=== PATIENT | female | born 2000 | race Caucasian/White ===

== ENCOUNTER 2024-06-25 08:39 | Outpatient (OUT) | payer BC, OTHER, SELFPAY ==
[2024-06-25 09:33] LABS: Creatinine Urine Random 148.54 mg/dL (20.00-300.00); Microalbumin Urine Random <1.3 mg/dL (<=30.0)
[2024-06-25 09:49] LABS: Alanine Aminotransferase 77 U/L (14-59); Albumin Globulin Ratio 1.4; Albumin Level 3.7 g/dL (3.4-5.0); Alkaline Phosphatase 99 U/L (46-116); Anion Gap 10.6; Aspartate Amino Transferase 33 U/L (15-37); BUN Creatinine Ratio 19.3; Bilirubin Total 0.5 mg/dL (0.2-1.0); Calcium 8.7 mg/dL (8.5-10.1); Carbon Dioxide 28.2 mmol/L (21.0-32.0); Chloride 104 mmol/L (98-107); Chol HDL Ratio 2.7; Cholesterol 203 mg/dL (<=200); Estimated GFR (African America >60 (>=60); Estimated GFR (Non-African Ame >60 (>=60); Globulin 2.6 g/dL; Glucose 175 mg/dL (74-106); HDL Cholesterol 76 mg/dL (40-60); Potassium 3.8 mmol/L (3.5-5.1); Sodium 139 mmol/L (136-145); Thyroid Stimulating Hormone 1.614 uIU/mL (0.358-3.740); Total Protein 6.3 g/dL (6.4-8.2); Triglycerides 44 mg/dL (<=150); VLDL CHOLESTEROL 8.8 mg/dL
[2024-06-27 12:07] LABS: C-Peptide, Serum <0.1 ng/mL (1.1-4.4)
== END 2024-06-25 08:40 | disposition home or self-care (01) ==
LOC: LAB 08:39
DX: E10.9 Type 1 diabetes mellitus without complications (principal)
CPT/HCPCS: 36415; 80053; 80061; 82043; 82570; 84443; 84681

== ENCOUNTER 2025-02-11 09:12 | Outpatient (OUT) | payer BC, OTHER, SELFPAY ==
--- NOTE | 2025-02-11 09:18 | XR_ITS ---
[facility] [place] [id number] Patient Name: CLINTON RALPH MRN: [id number] date: 2000 Sex: F Assigned Patient Location: [facility] Current Patient Location: [facility] Accession/Order Number: [id number] Exam Date: 02/11/2025 09:51 Report Date: 02/11/2025 09:52 At the request of: TRINO HOOVER Procedure: XR chest 2V PA AND LATERAL CHEST: CLINICAL HISTORY: Cough and chest congestion. Recent diagnosis of influenza A. COMPARISON: None There is no focal parenchymal consolidation, effusion or pneumothorax. The cardiac, hilar and mediastinal silhouettes are within normal limits. There is no vascular congestion. The visualized bony thorax is intact. There is subtle levoscoliotic curvature. XR/XR chest 2V IMPRESSION: NO ACUTE CARDIOPULMONARY ABNORMALITY. Impression dictated by: Corinna Breen M.D.02/11/2025 9:52 AM Dictation Location: [place] [id number] Electronically authenticated by: [id number] Y Date: 02/11/2025 09:52
--- OUTSIDE RECORDS SUMMARY | 2025-02-11 09:29 | XMS_ITS | CCD ---
Author Organization [facility] Care Team Providers Care Vehicle Inspector Name Role Phone Franki Dunlap Primary Care Provider SURI MC Attending Unavailable MY SAENZ Primary Care Unavailable Erma REN, Su Olson Attending Ivory vailable My Saenz DO Primary Care Un available Unavailable Primary Care Provider UnavailODELL Montana Attending Unavailable My Saenz DO Unavailable Lillie Irvin NP Primary Care Provider My Saenz DO Unavailable LILLIE IRVIN Primary Care Physician [phone] Herlinda Jacobson Unavailable MY SAENZ Attending Unavailable MY SAENZ Attending Unavailable ADRIÁN WAKEFIELD Attending Unavailable LILLIE IRVIN Referring Unavailab ADRIÁN Arnold Attending Unavailable MY SAENZ Attending Unavailable MADNA GUERRERO Attending Unavailable Melody Saxena Attending Unavailable Melody Saxena Admitting Unavailable Melody Saxena Attending Unavailable Watson Escobar Attending Unavailable Medications Current Medications Medication Drug Class(es) Dates Sig (Normalized) Sig (Original) ciclopirox (3 sources) Start: 07-21-2024 Ciclopirox 8 % solution Active 1 APPLIC TOPICAL Daily at bedtime 6.6 July 21, 2024 12:00am Start: 07-21-2024 Ciclopirox 8 % solution Active 1 APPLIC TOPICAL Daily at bedtime 6.6 July 20, 2024 11:00pm Start: 07-21-2024 Ciclopirox Act john 1 APPLIC TOPICAL Daily at bedtime 6.6 July 21, 2024 12:00am Continuous Blood Gluc Sensor (Dexcom G7 Sensor) [facility] (12 sources) Start: 01-19-2024 Continuous Blood Gluc Sensor (Dexcom G7 Sensor) [facility] Indications: Type 1 diabetes mellitus without complication (CMS/HCC) Inject 1 Device under the skin See administration instructions Change every 10 days 9 each 3 01/19/2024 Active ethinyl estradiol 0.02 mg / norethindrone acetate 1 mg oral tablet (1 source) Estrogen Start: 05-13-2019 take 1 tablet by mouth once daily 12/20 1-20 MG-MCG per tablet TAKE 1 TABLET BY MOUTH EVERY DAY 11 05/13/2019 Active glucagon 3 mg nasal powder (17 sources) Antihypoglycemic Agent Start: 06-17-2024 glucagon 3 mg/actuation nasal spray (BAQSIMI) Use 1 Warren in the nose as needed for low blood sugar. May repeat after 15 minutes using a new device if there is no response. 2 Each 1 06/17/2024 Active Start: 05-05-2023 take 3 mg nasal route once glu cagon (Baqsimi Two Pack) 3 MG/DOSE nasal powder Indications: Type 1 diabetes mellitus without complication (CMS/HCC) Administer 3 mg into affected nostril(s) 1 (one) time if needed for low blood sugar. 1 each 1 05/05/2023 Active Start: 04-01-2013 glucagon (GLUC AGON EMERGENCY) 1 MG injection Indications: Diabetes mellitus type 1 (HCC) , Microalbuminuria As directed for extreme hypoglycemia 2 kit 2 04/01/2013 Active Glucagon (Baqsimi) 3 mg/actuation spray,non-aerosol (4 sources) Start: 06-28-2024 Glucagon (Baqs imi) 3 mg/actuation spray,non-aerosol Active 3 MG INTRANASAL Once as needed for hypoglycemia June 28, 2024 12:00am Start: 06-28-2024 Glucagon (Baqs imi) 3 mg/actuation spray,non-aerosol Active 3 MG INTRANASAL Once as needed for hypoglycemia June 27, 2024 11:00pm Start: 06-28-2024 Glucagon (Baqs imi) 3 mg/actuation spray,non-aerosol Active 3 MG INTRANASAL Once June 28, 2024 12:00am Mucinex (3 sources) Start: 10-29-2024 take 1 mg by mouth every twelve hours Mucinex mg, Oral, q12hr, Refills(s) 0 Start Date: 10/29/24 Status: Ordered ibuprofen 600 mg oral tablet (1 source) Nonsteroidal Anti-inflammatory Drug Start: 05-14-2014 take 1 tablet by mouth every six hours as needed for pain ibuprofen (ADVIL;MOTRIN) 600 MG tablet Take 1 tablet by mouth every 6 hours as needed for Pain for 40 doses. 40 tablet 0 05/14/2014 Active 3 ml insulin glargine 100 unt/ml pen injector (20 sources) Insulin Analog Start: 07-06-2024 insulin glargi ne (Lantus SoloStar) 100 UNIT/ML pen Indications: Type 1 diabetes mellitus without complication (CMS/HCC) Inject 34 Units under the skin at bedtime 15 mL 1 07/06/2024 Active Start: 06-28-2024 Insulin Glargi ne (Lantus Solostar U-100 Insulin) 100 unit/mL (3 mL) insulin pen Active 34 UNIT SUBCUT Daily at bedtime June 28, 2024 12:00am Start: 06-17-2024 insulin glargi ne (BASAGLAR KWIKPEN U-100 INSULIN) 100 unit/mL (3 mL) Inject 30 Units subcutaneously. Use in case of pump malfunctioning 0 06/17/2024 Active Insulin Infusion Pump (T:sli m Insulin Delivery System) device (14 sources) Start: 11-22-2024 Insulin Infusi on Pump (T:slim Insulin Delivery System) device Indications: Type 1 diabetes mellitus without complication (CMS/HCC) Basal: 12A 1.45, 1P 1.35, 5P 1.6, ICR: 12A 5, 11A 6, ISF: 75, target: 110 1 each 11/22/2024 Active Start: 07-06-2024 End: 11-22-2024 Insulin Infusion Pump (T:sli m Insulin Delivery System) device Indications: Type 1 diabetes mellitus without complication (CMS/HCC) Basal: 12A 1.35, 8A 1.45, 1P 1.3, 5P 1.6, ICR: 12A 6, ISF: 75, target: 110 1 each 07/06/2024 11/22/2024 Discontinued (Dose adjustment) Start: 07-06-2024 Insulin Infusi on Pump (T:slim Insulin Delivery System) device Indications: Type 1 diabetes mellitus without complication (CMS/HCC) Basal: 12A 1.35, 8A 1.45, 1P 1.3, 5P 1.6, ICR: 12A 6, ISF: 75, target: 110 1 each 07/06/2024 Active insulin aspart, human 100 unt/ml injectable solution (20 sources) Insulin Analog Start: 10-29-2024 NovoLOG 100 un its/mL injectable solution Refills(s) 0 Start Date: 10/29/24 Status: Ordered Start: 06-28-2024 Insulin Aspart U-100 (Novolog U-100 Insulin Aspart) 100 unit/mL solution Active 0 .ROUTE .COMPLEX June 28, 2024 12:00am DIRECTED; Start: 05-24-2024 NOVOLOG U-100 INSULIN ASPART 100 unit/mL PER PUMP (MAX DAILY UNITS OF 80) 0 05/24/2024 Active Start: 02-26-2024 insulin aspart (NovoLOG) 100 UNIT/ML injection Indications: Type 1 diabetes mellitus without complication (CMS/HCC) Per pump (max daily 80 units) 80 mL 3 02/26/2024 Active Start: 06-15-2012 insulin aspart (NOVOLOG) 100 UNIT/ML injection Indications: Diabetes mellitus type 1 (HCC) For use in insulin pump, up to 60 units/day. 90 day supply 12 vial 3 06/15/2012 Active levocetirizine dihydrochloride 5 mg oral tablet (1 source) Histamine-1 Receptor Antagonist Start: 09-17-2019 take 1 tablet by mouth once daily levocetirizine (XYZAL) 5 MG tablet Indications: Seasonal allergic rhinitis due to pollen Take 1 tablet by mouth nightly 30 tablet 1 09/17/2019 Active lisinopril 10 mg oral tablet (1 source) Angiotensin Converting Enzyme Inhibitor Start: 04-13-2014 take 1 tablet by mouth once daily lisinopril (PRINIVIL;ZESTRIL) 10 MG tablet Indications: Microalbuminuria One tablet daily by mouth. 3 month supply 90 tablet 3 04/13/2014 Active montelukast 10 mg oral tablet (1 source) Leukotriene Receptor Antagonist Start: 09-17-2019 take 1 tablet by mouth once daily montelukast (SINGULAIR) 10 MG tablet Indications: Seasonal allergic rhinitis due to pollen Take 1 tablet by mouth daily 30 tablet 1 09/17/2019 Active ondansetron 8 mg disintegrating oral tablet (1 source) Serotonin-3 Receptor Antagonist Start: 12-16-2012 take 1 tablet by mouth every eight hours as needed for nausea ondansetron (ZOFRAN ODT) 8 MG disintegrating tablet Indications: Microalbuminuria , Diabetes mellitus type 1 (HCC) Take 1 tablet by mouth every 8 hours as needed for Nausea (nausea/vomiting). 10 tablet 2 12/16/2012 Active oseltamivir 75 mg oral capsule (1 source) Neuraminidase Inhibitor Start: 02-08-2025 take 1 capsule by mouth twice daily Oseltamivir (Tamiflu) 75 mg capsule Active 75 MG PO Twice daily 10 February 08, 2025 12:00am terbinafine 250 mg oral tablet (2 sources) Allylamine Antifungal Start: 08-25-2024 End: 10-06-2024 take 1 tablet by mouth once daily terbinafine (LamISIL) 250 MG tablet Indications: Onychomycosis Take 1 tablet (250 mg) by mouth Daily 42 tablet 08/25/2024 10/06/2024 Active Zofran ODT 4 mg Tab-Dis (2 sources) Start: 01-07-2025 take 1 tablet by mouth every eight hours as needed for nausea Zofran ODT 4 mg Tab-Dis 4 mg = 1 tab(s), Oral, q8hr, PRN Nausea/Vomiting, # 20 tab(s), Refills(s) 0, Pharmacy: [facility]/pharmacy #[id number], 163, cm, 01/07/25 15:58:00 EST, Height/Length Dosing, 84.2, kg, 01/07/25 15:58:00 EST, Weight Dosing Start Date: 01/07/25 Status: Ordered Completed/Discontinued Medications Medication Drug Class(es) Dates Sig (Normalized) Sig (Original) amoxicillin 875 mg / clavulanate 125 mg oral tablet (3 sources) Penicillin-class Antibacterial Start: 01-24-2025 End: 02-08-2025 take 1 tablet by mouth twice daily Amoxicillin-Pot Clavulanate 875-125 mg tablet Discontinued 1 TAB PO Twice daily 20 January 24, 2025 1:00am February 08, 2025 2:55pm Start: 10-29-2024 End: 11-08-2024 take 1 tablet by mouth every twelve hours Augmentin 875 mg oral tablet = 1 tab(s), Oral, q12hr, X 10 day(s), # 20 tab(s), Refills(s) 0, Pharmacy: [facility]/pharmacy #[id number], 163, cm, 10/29/24 11:13:00 EST, Height/Length Dosing, 81.9, kg, 10/29/24 11:13:00 EST, Weight Dosing Start Date: 10/29/24 Stop Date: 11/08/24 Status: Ordered busPIRone hydrochloride 5 mg oral tablet (16 sources) Start: 06-28-2024 End: 01-24-2025 take 1 tablet by mouth once Buspirone 5 mg tablet Discontinued 5 MG PO Once 90 90 July 21, 2024 2:58pm January 24, 2025 4:00pm Problems Active Problems Problem Classification Problem Date Documented Da te Episodic/Chronic Abdominal pain (1 source) Left lower quadrant pain; Translations: [Left lower quadrant pain] Onset: 01-25-2023 Episodic Anxiety disorders (8 sources) Anxiety; Translations: [Anxiety disorder, unspecified] 06-28-2024 Chronic Contraceptive and procreative management (4 sources) Patient encounter status; Translations: [Encounter for other general counseling and advice on contraception] 11-15-2024 Episodic Diabetes mellitus with complications (4 sources) Hypoglycemia due to diabetes mellitus; Translations: [Type 1 diabetes mellitus with hypoglycemia without coma] Onset: 06-17-2024 06-17-2024 Chronic Diabetes mellitus without complication (20 sources) Type 1 diabetes mellitus; Translations: [Type 1 diabetes mellitus without complication] Onset: 04-11-2023 08-29-2011 Chronic Diabetes mellitus without complication (5 sources) Insulin pump present; Translations: [Presence of insulin pump (external) (internal)] Onset: 06-17-2024 06-17-2024 Episodic Disorders of lipid metabolism (1 source) Pure hypercholesterolemi a; Translations: [Pure hypercholesterolemi a, unspecified] 07-04-2024 Chronic Mycoses (8 sources) Onychomycosis due to dermatophyte ; Translations: [Tinea unguium] 07-21-2024 Episodic Nausea and vomiting (3 sources) Nausea; Translations: [Nausea] Onset: 01-07-2025 Episodic Other female genital disorders (2 sources) History of gynecological disorder; Translations: [Personal history of other diseases of the female genital tract] 12-02-2024 Episodic Other gastrointestinal disorders (1 source) Constipation, unspecified; Translations: [Constipation, unspecified] Onset: 01-25-2023 Episodic Other screening for suspected conditions (not mental disorders or infectious disease) (2 sources) Cancer cervix screening status; Translations: [Encounter for screening for malignant neoplasm of cervix] 11-15-2024 Episodic Other upper respiratory infections (4 sources) Chronic sinusitis; Translations: [Chronic sinusitis, unspecified] Onset: 10-29-2024 Chronic Other upper respiratory infections (3 sources) Acute pharyngitis; Translations: [Acute pharyngitis, unspecified] Onset: 01-07-2025 Episodic Past or Other Problems Problem Classification Problem Date Documented Da te Episodic/Chronic Genitourinary symptoms and ill-defined conditions (1 source) Microalbuminuria; Translations: [Microalbuminuria] Onset: 12-05-2011 12-05-2011 Episodic Other connective tissue disease (12 sources) Tendonitis of left wrist; Translations: [Other enthesopathies, not elsewhere classified] Onset: 07-06-2024 07-06-2024 Episodic Other connective tissue disease (12 sources) Enthesopathy; Translations: [Enthesopathy, unspecified] Onset: 07-06-2024 07-06-2024 Episodic Results Test Name Value Interpretation Reference Range Facility Influenza virus B Ag [Presen ce] in Upper respiratory specimen by Rapid immunoassayon 01-24-2025 FLUBV Ag IA.rapid Ql (Nph) Influenza virus B Ag [Presence] in Upper respiratory specimen by Rapid immunoassay [facility] No Panel Informationon 01-24 Influenza Type A (Rapid) Negative [facility] POC SARS CoV-2 Antigen Negative [facility] Ambulatory Visit Summaryon 0 01-07-2025 Ambulatory Visit Summary Ambulatory Visit Summary CLINTON RALPH :2000 Visit Date:01/07/2025 Ambulatory Visit Instructions Your Diagnosis Nausea Pharyngitis Your Care Team Attending Physician - Melody John Primary Care Physician - ROHRBACHER COCONUT BOILER, LILLIE A This Is Your Medications List guaifenesin (Mucinex) insulin aspart (NovoLOG 100 units/mL injectable solution) ondansetron (Zofran ODT 4 mg Tab-Dis) Discharge Vitals Temperature (Oral) 36.7 ???C Heart Rate (Peripheral) 94 Blood Pressure 114/76 Height 163 cm Height 64 in Weight 84.2 kg Weight 185.629 lb BMI 31.69 What to do next You Need to Complete the Following Strep Screen Culture, Throat, Routine collect, 01/07/25, Order for future visit, Nurse collect, Nausea Pharyngitis, Print Label By Order Location Medications What How Much When Why Instructions New ondansetron (Zofran ODT 4 mg Tab-Dis) 1 Tablets By Mouth Every 8 hours as needed for Nausea/Vomiting Nausea Pickup at [facility]/pharmacy #[id number] Unchanged guaifenesin (Mucinex) By Mouth Every 12 hours Unchanged insulin aspart (NovoLOG 100 units/ mL injectable solution) Pharmacy Information [facility]/pharmacy #[id number]: [address] [place], [place] [id number] [phone] Allergies No Known Allergies Problems Ongoing - Any problem that you are currently receiving treatment for. Nausea Pharyngitis Patient Survey You may receive a survey via text or e-mail asking about your office visit. Please share your experience with us by completing your survey. We appreciate your feedback and thank you for choosing us for your care. Della [facility] Family Medicine Office/Clini c Noteon 01-07-2025 Family Medicine Office/Clinic Note Family Medicine Office/Clinic Note Chief Complaint congstion and sore throat HPI Staff Patient presents today for sore throat and congestion. 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 head pressure and throat pain. mild abd pain with nausea. LMP a week ago. Denies chance of no cough. similar to 2 months ago . Type 1 DM with insulin -sugar was 300 today. She had some generalized complaints and wanted to quickly get this checked out finished full day of school/work. Review of Systems PHQ Score Initial Depression Screen Score: 0 SCORE Physical Exam Vitals & Measurements T: 36.7 ???C(Oral) HR: 94(Peripheral) BP: 114/76 SpO2: 96% HT: 64 in HT: 163 cm WT: 84.2 kg WT: 185.629 lb BMI: 31.69 General: alert, no acute distress, well appearing, _pleasant, young female pleasant room 5 Skin: warm, dry, intact Head: no trauma, normocephalic Neck: Trachea midline, no adenopathy, no tenderness Eye: normal conjunctiva, sclera clear, _PERRLA ENMT: TM's clear, mild bulging noted to the TMs, no injection or purulence or erythema to the TMs , oral mucosa moist, no pharyngeal erythema or exudate, normal dentition, uvula is midline, tonsils are surgically absent Cardiovascular: regular rate and rhythm, normal peripheral perfusion, no edema Respiratory: Lungs CTA, respirations non labored Chest wall: no deformity, non tender Gastrointestinal: soft, non distended, no tenderness, no guarding. No rigidity, negative CVA tenderness Back: No tenderness, Normal ROM, Normal alignment. Extremities: no deformity, no trauma Neurological: oriented x 4, LOC appropriate for age, CN II-XII intact, motor strength equal & normal bilaterally, sensation equal & normal bilaterally, speech normal Psychiatric: cooperative? , affect appropriate for age? , normal? judgement, normal? psychiatric thoughts. Assessment/Plan 1. Nausea (R11.0: Nausea) As needed Zofran sent to the pharmacy, likely early viral infection. Patient will monitor symptoms closely. I told her she can call me if she takes an at home influenza test and she may benefit from Tamiflu. Office testing covid and flu negative . Note for work was provided. Patient instructed this is likely viral. She will follow-up with her PCP about of [facility] Ordered: ondansetron, 4 mg = 1 tab(s), Oral, q8hr, PRN Nausea/Vomiting, # 20 tab(s), Refills(s) 0, Pharmacy: [facility]/pharmacy #[id number], 163, cm, 01/07/25 15:58:00 EST, Height/Length Dosing, 84.2, kg, 01/07/25 15:58:00 EST, Weight Dosing Strep Screen Culture 2. Pharyngitis (J02.9: Acute pharyngitis, unspecified) warm salt water gargles and OTC meds needed for discomfort. Will send for strep culture Encourage close monitoring of blood sugars due to diabetes Ordered: Strep Screen Culture Total time spent preparing the chart, conducting of the encounter with the patient and family and time spent documenting, reviewing, and ordering tests was 30 minutes. Portions of this record may have been created with voice recognition artificial intelligence software, specifically [employer], Respi and or ERPLY. Substitutions may have occurred due to the inherent limitations of voice recognition and artificial intelligence software. Follow-up With When Contact Information YOUR PCP Additional Instructions: Patient Education Pharyngitis Nausea and Vomiting, Adult Problem List/Past Medical History Ongoing Nausea Pharyngitis Historical No qualifying data Medications Mucinex, Oral, q12hr NovoLOG 100 units/mL injectable solution Zofran ODT 4 mg Tab-Dis, 4 mg= 1 tab(s), Oral, q8hr, PRN Allergies No Known Allergies Social History Tobacco Never (less than 100 in lifetime) Tobacco Use:. Never Smokeless Tobacco Use:. Household tobacco concerns: No., 01/07/2025 Normal [facility] Comment on above: Result Comment: Elec tronically Signed By: Hemanth BRYAN, Melody Cartagena\.br\Date and Time Signed: 01/07/25 16:45 EST Provider Letteron 01-07-2025 Provider Letter Provider Letter [address] [place] [address]. [place] [address] January 07, 2025 CLINTON RALPH [address] [place] [id number] : 2000 To Whom It May Concern, Please excuse above patient from work. Date of Illness: From: _ 01/07/25 To: _01/10/25 May Return to Work On: 01/10/25 -if fever free for 24 hours Restrictions: _ Comments: _ Sincerely, Melody Saxena [facility] [address] [place] [address], [place] [address] Normal [facility] CORTISOL, TOTALon 12-14-2024 CORTISOL, TOTAL 21.8 mcg/dL Normal [facility] Comment on above: Result Comment: Refe rence Range: For 8 a.m.(7-9 a.m.) Specimen: 4.0-22.0 Reference Range: For 4 p.m.(3-5 p.m.) Specimen: 3.0-17.0 * Please interpret above results accordingly * Performed By: #### 7 46, 899, 615, 367, 866, 745, [id number] #### [facility] [address] [facility], [address] [place] [address] Coal Loader: Germain Hendrix MD #### [id number] #### [facility] [address] [facility] [place] [address] Coal Loader: Quentin Gama M.D.,PhD #### [id number] #### [facility] [address] [place] [address] Coal Loader: Antonina Junior MD,PhD,JAGDISH Cortisolon 12-14-2024 Cortisol [Mass/Vol] 21.8 ug/dL mcg/dL [facility] Comment on above: Reference Range: For 8 a.m.(7-9 a.m.) Specimen: 4.0-22.0 Reference Range: For 4 p.m.(3-5 p.m.) Specimen: 3.0-17.0 * Please interpret above results accordingly * ESTRONEon 12-14-2024 ESTRONE 55 pg/mL Normal [facility] Comment on above: Order Comment: FASTI NG:YES FASTING: YES Result Comment: Adult Female Reference Ranges for Estrone: Follicular Phase: 10-138 pg/mL Luteal Phase: 16-173 pg/mL Postmenopausal Phase: < or = 65 pg/mL Pediatric Female Reference Ranges for Estrone: Pre-pubertal (1-9 years): < or = 34 pg/mL 10-11 years: < or = 72 pg/mL 12-14 years: < or = 75 pg/mL 15-17 years: < or = 188 pg/mL This test was developed and its analytical performance characteristics have been determined by [facility]. It has not been cleared or approved by FDA. This assay has been validated pursuant to the CLIA regulations and is used for clinical purposes. Performed By: #### 7 46, 899, 615, 367, 866, 745, [id number] #### [facility] [address] [facility], [address] [place] [address] Coal Loader: Germain Hendrix MD #### [id number] #### [facility] [address] [facility] [place], [place] Coal Loader: Quentin Gama M.D.,PhD #### [id number] #### [facility], [address] [place] [phone] Coal Loader: Antonina Junior MD,PhD,JAGDISH Estroneon 12-14-2024 E1 [Mass/Vol] 55 pg/mL [facility] Comment on above: Adult Female Reference Ranges for Estrone: Follicular Phase: 10-138 pg/mL Luteal Phase: 16-173 pg/mL Postmenopausal Phase: < or = 65 pg/mL Pediatric Female Reference Ranges for Estrone: Pre-pubertal (1-9 years): < or = 34 pg/mL 10-11 years: < or = 72 pg/mL 12-14 years: < or = 75 pg/mL 15-17 years: < or = 188 pg/mL This test was developed and its analytical performance characteristics have been determined by [facility]. It has not been cleared or approved by FDA. This assay has been validated pursuant to the CLIA regulations and is used for clinical purposes. Performing Organization Information Site ID: [id number] Name: [facility], Address: [address] [place] [id number] Director: Antonina Junior MD,PhD,JAGDISH [facility] LHon 12-14-2024 LH 4.1 mIU/mL Normal [facility] Comment on above: Result Comment: Refe rence Range Follicular Phase 1.9-12.5 Mid-Cycle Peak 8.7-76.3 Luteal Phase 0.5-16.9 Postmenopausal 10.0-54.7 Performed By: #### 7 46, 899, 615, 367, 866, 745, [id number] #### [facility] [address], [address] [place], [place] [phone] Coal Loader: Germain Hendrix MD #### [id number] #### [facility]/[place] [id number] [facility] [address] [place], [place] Coal Loader: Quentin Gama M.D.,PhD #### [id number] #### [facility], [address] [place] [address] Coal Loader: Antonina Junior MD,PhD,JAGDISH Luteinizing hormoneon 2024 Lutropin Qn 4.1 m[IU]/mL mIU/mL [facility] Comment on above: Reference Range Follicular Phase 1.9-12.5 Mid-Cycle Peak 8.7-76.3 Luteal Phase 0.5-16.9 Postmenopausal 10.0-54.7 No Panel Informationon 12-14 FASTING:YES FASTING: YES [facility] Organization Information Site ID: [id number] Name: [facility] Address: [address] [place] [address], [address] [place], [place] [id number] Director: Germain Hendrix MD [facility] PROGESTERONEon 12-14-2024 PROGESTERONE <0.5 Normal [facility] Comment on above: Result Comment: Refe rence Ranges Female Follicular Phase < 1.0 Luteal Phase 2.6-21.5 Post menopausal < 0.5 1st Trimester 4.1-34.0 2nd Trimester 24.0-76.0 3rd Trimester 52.0-302.0 Performed By: #### 7 46, 899, 615, 367, 866, 745, [id number] #### [facility] [place] [id number] [facility], [address] [place], [place] [phone] Coal Loader: Germain Hendrix MD #### [id number] #### [facility] [id number] [facility] [address] [place], [place] Coal Loader: Quentin Gama M.D.,PhD #### [id number] #### [facility], [address] [place] [address] Coal Loader: Antonina Junior MD,PhD,JAGDISH PROLACTINon 12-14-2024 PROLACTIN 18.6 ng/mL Normal [facility] Comment on above: Result Comment: Refe rence Range Females Non- 3.0-30.0 10.0-209.0 Postmenopausal 2.0-20.0 Performed By: #### 7 46, 899, 615, 367, 866, 745, 07227 #### [facility] [address], [address] [place] [address] Coal Loader: Germain Hendrix MD #### [id number] #### [facility] [id number] [facility] [place], [place] Coal Loader: Quentin Gama M.D.,PhD #### [id number] #### [facility] [address] [place] [address] Coal Loader: Antonina Junior MD,PhD,JAGDISH Progesteroneon 12-14-2024 Progesterone [Mass/Vol] ng/mL ng/mL [facility] Comment on above: Reference Ranges Female Follicular Phase < 1.0 Luteal Phase 2.6-21.5 Post menopausal < 0.5 1st Trimester 4.1-34.0 2nd Trimester 24.0-76.0 3rd Trimester 52.0-302.0 Prolactinon 12-14-2024 Prolactin [Mass/Vol] 18.6 ng/mL [facility] Comment on above: Reference Range Females Non- 3.0-30.0 10.0-209.0 Postmenopausal 2.0-20.0 T3, FREEon 12-14-2024 Free T3 [Mass/Vol] 3.3 pg/mL Normal 2.3-4.2 [facility] Comment on above: Performed By: #### 7 46, 899, 615, 367, 866, 745, 50477 #### [facility] [address] [facility], [address] [place] [address] Coal Loader: Germain Hendrix MD #### [id number] #### [facility]/[address] [place], [place] Coal Loader: Quentin Gama M.D.,PhD #### [id number] #### [facility] [address] [place] [address] Coal Loader: Antonina Junior MD,PhD,JAGDISH T3, 12-14-2024 Free T3 [Mass/Vol] 3.3 pg/mL 2.3 - 4.2 pg/mL [facility] T4, 12-14-2024 Free T4 [Mass/Vol] 1.2 ng/dL Normal 0.8-1.8 [facility] Comment on above: Performed By: #### 7 46, 899, 615, 367, 866, 745, 19792 #### [facility] [place] [address] [facility], [address] [place] [phone] Coal Loader: Germain Hendrix MD #### [id number] #### [facility]/[address] [place], [place] Coal Loader: Quentin Gama M.D.,PhD #### [id number] #### [facility]/[place] [id number] [place], [place] Coal Loader: Antonina Junior MD,PhD,JAGDISH T4, 12-14-2024 Free T4 [Mass/Vol] 1.2 ng/dL 0.8 - 1.8 ng/dL [facility] TESTOSTERONE, FREE (DIALYSIS ) AND TOTAL,MS12-14-2024 TESTOSTERONE, FREE 3.9 pg/mL Normal 0.1-6.4 [facility] Comment on above: Result Comment: This test was developed and its analytical performance characteristics have been determined by [facility] [place], [place]. It has not been cleared or approved by the U.S. Food and Drug Administration. This assay has been validated pursuant to the CLIA regulations and is used for clinical purposes. Performed By: #### 7 46, 899, 615, 367, 866, 745, 51289 #### [facility] [address], [address] [place] [address] Coal Loader: Germain Hendrix MD #### [id number] #### [facility] [address] [facility] [address] [place], [place] Coal Loader: Quentin Gama M.D.,PhD #### [id number] #### [facility], [address] [place] [address] Coal Loader: Antonina Junior MD,PhD,JAGDISH TESTOSTERONE, TOTAL, MS 36 ng/dL Normal 2-45 [facility] Comment on above: Result Comment: For additional information, please refer to http://education.[employer]ant[employer]/faq/ Az[email or web address] (This link is being provided for informational/ educational purposes only.) This test was developed and its analytical performance characteristics have been determined by [facility] [place], [place]. It has not been cleared or approved by the U.S. Food and Drug Administration. This assay has been validated pursuant to the CLIA regulations and is used for clinical purposes. Performed By: #### 7 46, 899, 615, 367, 866, 745, 17569 #### [facility] [address] , [address] [place] [address] Coal Loader: Germain Hendrix MD #### [id number] #### [facility] [address] [facility] [place], [place] Coal Loader: Quentin Gama M.D.,PhD #### [id number] #### [facility], [address] [place] [address] Coal Loader: Antonina Junior MD,PhD,JAGDISH TSHelier 12-14-2024 TSH Qn 1.86 m[IU]/L Normal [facility] Comment on above: Result Comment: Refe rence Range > or = 20 Years 0.40-4.50 Ranges First trimester 0.26-2.66 Second trimester 0.55-2.73 Third trimester 0.43-2.91 Performed By: #### 7 46, 899, 615, 367, 866, 745, 00714 #### [facility] [address] [facility], [address] [place] [address] Coal Loader: Germain Hendrix MD #### [id number] #### [facility] [address] [facility] [place], [place] Coal Loader: Quentin Gama M.D.,PhD #### [id number] #### [facility], [address] [place] [address] Coal Loader: Antonina Junior MD,PhD,JAGDISH TSH Qn 1.86 m[IU]/L mIU/L [facility] Comment on above: Reference Range > or = 20 Years 0.40-4.50 Ranges First trimester 0.26-2.66 Second trimester 0.55-2.73 Third trimester 0.43-2.91 Testosterone Free/Testostero ne.total [Mass fraction]on 12-14-2024 Testosterone [Mass/Vol] 36 ng/dL 2 - 45 ng/dL [facility] Comment on above: For additional information, please refer to http://education.Semantria/faq/ [email or web address] (This link is being provided for informational/ educational purposes only.) This test was developed and its analytical performance characteristics have been determined by [facility] [place], [place]. It has not been cleared or approved by the U.S. Food and Drug Administration. This assay has been validated pursuant to the CLIA regulations and is used for clinical purposes. Testosterone Free [Mass/Vol] 3.9 pg/mL 0.1 - 6.4 pg/mL [facility] Comment on above: This test was developed and its analytical performance characteristics have been determined by [facility] [place], [place]. It has not been cleared or approved by the U.S. Food and Drug Administration. This assay has been validated pursuant to the CLIA regulations and is used for clinical purposes. Performing Organization Information Site ID: AMD Name: [facility] Address: [address] [place] [address] [place], [place] Director: Quentin Gama M.D.,PhD [facility] THINPREP TIS PAP RFX HPVon 0 12-03-2024 CLINICAL INFORMATION: Normal [facility] Comment on above: Result Comment: None given Performed By: #### 9 2086 #### [facility] [place] [address] Coal Loader: Germain Hendrix MD COMMENT Normal [facility] Comment on above: Result Comment: EXPL ANATORY NOTE: The Pap is a screening test for cervical cancer. It is not a diagnostic test and is subject to false negative and false positive results. It is most reliable when a satisfactory sample, regularly obtained, is submitted with relevant clinical findings and history, and when the Pap result is evaluated along with historic and current clinical information. Performed By: #### 9 2086 #### [facility] [place] [address] Coal Loader: Germain Hendrix MD COMMENT: Normal [facility] Comment on above: Result Comment: This Pap test has been evaluated with computer assisted technology. Performed By: #### 9 2086 #### [facility] [place] [address] Coal Loader: Germain Hendrix MD BLOOD TESTER: Normal See Note: [facility] Comment on above: Result Comment: Refe rence Range: ZL, CT(ASCP) CT screening location: [place] [address]. Performed By: #### 9 2086 #### [facility] of [address] , [address] [place] [address] Coal Loader: Germain Hendrix MD INTERPRETATION/RESUL T: Normal [facility] Comment on above: Result Comment: Cyto logy Results: Negative for intraepithelial lesion or malignancy. Performed By: #### 9 2086 #### [facility] of [address], [address] [place] [address] Coal Loader: Germain Hendrix MD LMP: Normal [facility] Comment on above: Result Comment: None given Performed By: #### 9 2086 #### [facility] of [address], [address] [place] [address] Coal Loader: Germain Hendrix MD PREV. BX: Normal [facility] Comment on above: Result Comment: None given Performed By: #### 9 2086 #### [facility] of [address], [address] [place] [address] Coal Loader: Germain Hendrix MD PREV. PAP: Normal [facility] Comment on above: Result Comment: None given Performed By: #### 9 2086 #### [facility] of [address], [address] [place] [address] Coal Loader: Germain Hendrix MD SOURCE: Normal [facility] Comment on above: Result Comment: None given Performed By: #### 9 2086 #### [facility] of [address], [address] [place] [address] Coal Loader: Germain Hendrix MD STATEMENT OF ADEQUACY: Normal [facility] Comment on above: Result Comment: Sati sfactory for evaluation. Endocervical/transformation zone component present. Performed By: #### 9 2086 #### [facility] of [address], [address] [place] [address] Coal Loader: Germain Hendrix MD HbA1c (Bld) [Mass fraction]o n 11-22-2024 Interpretation and review of laboratory results Normal [facility] Cell countson 11-22-2024 HbA1c (Bld) [Mass fraction] 7.8 % [facility] Family Medicine Office/Clini c Noteon 10-29-2024 Family Medicine Office/Clinic Note Family Medicine Office/Clinic Note Chief Complaint cough, sinus congestion HPI Staff 24 year old female presents for productive cough, scratchy throat , sinus congestion, headache. Pt denies having a fever. Onset- 4 days OTC- Mucinex History of Present Illness I have reviewed and verified the staff HPI to be accurate for this encounter. Portions of this record have been created with voice recognition software. Occasional wrong-word or ???mdptt-g-vybs??? substitutions may have occurred due to the inherent limitations of voice recognition software. 24 yo female with hx of type 1 diabetes, presents today with cc of productive cough, scratchy throat, sinus congestion and headache. Denies any fever. Onset x 4 days ago. Has been using OTC mucinex for symptoms. Patient states she started with a scratchy throat followed by nasal drainage and congestion. 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 Patient denies any chest pain shortness of breath or difficulty breathing. Denies any smoking history. Denies any wheezing or history of asthma or COPD. Patient states on occasion her cough is productive of yellow mucus or phlegm which is the same color she been going out of her nose. About a bilateral ear pressure but denies ear pain. She denies any fevers that she is aware of denies any major chills or bodyaches denies headache. States she has concern for more of a sinus infection as she states that today her glucose was up to 2 80-90 and typically it is never that high. Also unsure if that is coming from the bciz-opl-ieaqjgo cold medication she has been taking. Patient denies any sick contacts at home. She does state a little bit of loose stool but denies any vomiting, nausea or abdominal pain. She has no other concerns at this time. Review of Systems PHQ Score Initial Depression Screen Score: 0 SCORE ROS negative unless otherwise stated in HPI. Physical Exam Vitals & Measurements HR: 94(Peripheral) RR: 16 BP: 110/70 SpO2: 98% HT: 64 in HT: 163 cm WT: 81.9 kg WT: 180.558 lb BMI: 30.83 General: Well developed, well nourished, in no acute distress Eyes: Bilateral conjunctiva within normal limits no injection Ears: Bilateral TMs are within normal limits no erythema or bulging. Bilateral external auditory canals are within normal limits no erythema or edema Nose: moderate nasal mucosa inflammation and edema bilateral swollen erythematous boggy nasal turbinates bilaterally. No active drainage deformity or lesion Mouth: Moist mucous membranes. Uvula is midline. No acute tonsillar erythema edema or exudate. No signs of peritonsillar abscess. No trismus or drooling. Neck: no adenopathy Lungs: Lung sounds are clear bilaterally. No wheezing rhonchi or crackles on exam. Cardio: S1, S2, regular rhythm. No murmurs gallops or rubs. Abdomen: not assessed Musculoskeletal: not assessed Extremity: not assessed Neurologic: not assessed Skin: not assessed Mental Status: Alert and oriented x3. Normal mood and affect Assessment/Plan I spoke with patient regards to sinusitis in which I typically do not treat until patient has symptoms at least 8 days more so 10 days duration. I discussed with patient that she may continue iekj-jvs-ugjjady Flonase as well as Mucinex as needed temporarily for symptoms. Discussed that I will send a prescription for Augmentin twice daily x 10 days duration which would cover that of a sinus infection however I do not want patient to start this medication until she has had symptoms for an additional 3 to 4 days duration which patient agrees and understands plan of care. Otherwise may return if needed. I did offer rapid COVID-19 and influenza testing however patient declines at this time. 1. Sinusitis, (J32.9: Chronic sinusitis, unspecified)Sinusiti s Discussed symptoms likely remain viral in nature at this time. May use flonase for symptomatic treatment, PRN tylenol/ibuprofen for pain. If improving over next 3-4 days, is consistent with viral illness and antibiotics not needed. If no improvement over next 3-4 days, fill Rx for augmentin 875 mg bid x 10 days and finish entire course. Fu with PCP if not improving with 5-7 days of antibiotic or significantly worsening. Patient verbalized understanding of treatment plan. Ordered: amoxicillin-clavulan ate, = 1 tab(s), Oral, q12hr, X 10 day(s), # 20 tab(s), Refills(s) 0, Pharmacy: [facility]/pharmacy #[id number], 163, cm, 10/29/24 11:13:00 EST, Height/Length Dosing, 81.9, kg, 10/29/24 11:13:00 EST, Weight Dosing Follow-up With When Contact Information LILLIE IRVIN CNP Additional Instructions: Patient Education Sinus Infection, Adult Problem List/Past Medical History Ongoing No qualifying data Historical No qualifying data Medications Augmentin 875 mg oral tablet, 1 tab(s), Oral, q12hr Mucinex, Oral, q12hr NovoLOG 100 units/mL injectable solu (more content not included)... Normal [facility] Comment on above: Result Comment: Elec tronically Signed By: Shawn REN, Watson Sheikh\.br\Date and Time Signed: 10/29/24 11:26 EST Rosenda 06-28-2024 ADELA Telephone (ENDOMN) CLINTON RALPH ([id number]) 2000 F Date Time Provider Department 06/28/24 ODELL LYMAN During your visit today, we recorded the following information about you: Ying Byrne MA 06/28/2024 10:08 AM Signed Patient calling to notify her BS have been high ever since the adjustment has been made to her pump. She is asking if anything can be done. BS this morning was 266. She has been running in 200s-300s. She has been changing her site and giving insulin but nothing is changing. Please call patient at [phone]. Ying Byrne [employer] Set Up Operator II Endocrinology AND Metabolism [facility] F20 AND X20 Odell Lyman MD 06/28/2024 9:32 PM Signed Please ask the patient to have her pump uploaded for review. Patient should have urine analysis and blood count looking for possible causes of high blood sugar (Urine tract infection for example). She should let me know when done. Dosage of bolus insulin was increased during the visit. It does not account for the high blood sugar. Patient's prior report was under the name of Clinton Barba ([place] name) on [employer] website. It would be preferred to use the same name as in medical record. Odell Lyman MD, Odell Schuster MD 06/29/2024 8:46 AM Signed Addended by: ODELL LYMAN on: 06/29/2024 08:46 AM Modules accepted: Orders Kindra Padilla MA 06/29/2024 9:24 AM Signed Patient notified and verbalized understanding. Patient stated she will upload her pump today. Patient stated she had blood work and urine test done at [facility] and will have results faxed to our office. Provided patient with fax number [phone]. Ijeoma Harp RN 06/29/2024 12:22 PM Signed Patient calling. She is trying to connect to [employer] for [employer] to upload her insulin pump info, and is having some difficulties. Asking for a call back to assist please Call [phone] Germania Oliveros RN 06/29/2024 1:21 PM Signed Called the patient and advised she log in through [employer] Source. Patient was able to log in but was receiving an error message when attempting to upload her pump. Patient states she will contact [employer] customer support and will contact our office once she is able to have the pump uploaded. Kindra Padilla MA 06/29/2024 1:58 PM Signed Received lab results from [facility]. Placed in Dr. Lyman's folder for review. Martine Blackman 06/30/2024 11:23 AM Signed Patient calling because she was able to get her pump uploaded yesterday and is calling to ask if the office was able to access those yet as her BS are still running very high Kindra Padilla MA 06/30/2024 11:41 AM Signed Report printed for Dr. Lyman to review. Odell Lyman MD 06/30/2024 12:47 PM Addendum We will change Correction factor to 50 (instead of 75) I sent a [employer] message with a request for a notification if the message is not read. Odell Lyman MD, JAGDISH Allergies As of Date: 06/28/2024 (No Known Allergies) Date Reviewed: 06/17/2024 Reviewed by: Kindra Padilla MA - Fully Assessed Reason for Visit: Medication Problem [65] Primary Visit Diagnosis:Type 1 diabetes mellitus with hyperglycaemia (HCC) [E10.65] Order(s):URINALYSIS, WITH MICROSCOPIC [SQUAWMIC] Order #: [id number] FUTURE COMPLETE BLOOD COUNT AND DIFFERENTIAL [SQCBCDIF] Order #: [id number] FUTURE Prescriptions as of 06/30/2024 - NOVOLOG U-100 INSULIN ASPART 100 unit/mL PER PUMP (MAX DAILY UNITS OF 80) - glucagon 3 mg/actuation nasal spray (BAQSIMI) Use 1 Warren in the nose as needed for low blood sugar. May repeat after 15 minutes using a new device if there is no response. - insulin glargine (BASAGLAR KWIKPEN U-100 INSULIN) 100 unit/mL (3 mL) Inject 30 Units subcutaneously. Use in case of pump malfunctioning Problem List As Of Date 06/28/2024 Noted Resolved Type 1 diabetes mellitus without complication (*06/17/2024 Type 1 diabetes mellitus with hypoglycaemia (HC*06/17/2024 Insulin pump status [Z96.41] 06/17/2024 Insulin pump titration [Z46.81] 06/17/2024 Encounter Status:Closed by YING BYRNE on 06/28/24 [facility] Wade 06-17-2024 CNOV Office Visit (ENDOAV) CLINTON RALPH ([id number]) 2000 F Date Time Provider Department 06/17/24 9:00 AM ODELL LYMAN ENDOPREETI During your visit today, we recorded the following information about you: Pulse Respiration Blood pressure Weight 81/minute 16/minute 122/79 79.8 kg Height Last Period 1.626 m 06/12/24 Odell Lyman MD 06/17/2024 5:53 PM Signed [facility] Endocrinology Department Today's Visit Information Reason for Visit: Diabetes Visit Type: Initial Consult Type: Self-referral Consultation Chief Complaint: Other CC Other: 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 She has type 1 diabetes treated with insulin pump. She has Tandem T-Slim X2 with control IQ for the past 4 years. Diabetes History Patient age (years) when first diagnosed with Diabetes: 4 Diabetes Type: DM Type 1 Diabetes Related Complications: None known Related Comorbidities: Obesity Nutrition/Diet Summary Patient Current Diet: Counts carbs, Other - Specify Specify Diet: She keeps meal carbs to 20-30 grams per meal and 15 grams per snack, gluten-free Number of Meals per day: Three Number of Snacks per day/week: Per Day - Specify Number of snacks per day - Specify: 2, mid-afternoon and at bedtime. Exercise Summary Patient exercise routine: Exercising, Minimum times per week - Specify, Duration of session in minutes - Specify Exercise routine involves: Weight training, Treadmill Number of times per week patient exercises: 5 Exercise session duration (minutes): 60 Blood Glucose (BG) Monitoring Monitoring Frequency: Per day - Specify Daily Monitoring - Specify: CGM Blood Glucose Summary/Pattern Patient Age when Insulin pump use started (years): 7 Insulin Pump Type: Tandem Tandem Model: t slim X2 CGM Summary Patient Uses Personal CGM: Yes - Specify CGM Other - Specify: Dexcom Summary of Findings - CGM Type: Personal Procedure date (Initial): 05/21/24 Procedure date (End): 06/17/24 CGM recording is adequate for interpretation: Yes Recording Time (%): 95 Total frequency of hypoglycemia: (Comment: 1-3 per week) Hypoglycemia pattern(s): Other - Specify, No specific pattern(s) Time spent in hypoglycemia (%): 1.7 (Comment: only 0.4% of time < 54 mg/dl) Hypoglycemia pattern - Specify: only one episode was nocturnal Hyperglycemic episodes: Sporadic post-prandial hyperglycemia Time spent in hyperglycemia (%): 39.7 (Comment: 9.7% > 250 mg/dl) Average glucose (+/-): 171 Time in range (70-180 mg/dL) (%): 59 Glucose Variability (%): 35 Glucose Management Indicator (%): 7.4 Summary page of the report will be included in the note/procedure note: Yes (Comment: Nursing note) Current issues with Glycemic Control Primary problem(s) patient has with glycemic control include(s): Fluctuations of glucose levels, Hypoglycemic episodes Frequency of Hypoglycemia: Weekly - Specify Hypoglycemia Weekly Pattern - Specify: 1-3, only one was nocturnal over the past month Hypoglycemia awareness: When hypoglycemic, patient develops symptoms Hypoglycemia symptoms: (Comment: Shaky, confused, weak) When hypoglycemic symptoms occurs, blood glucose levels - Specify: 60s mg/dl Dilated Retinal Exam Dilated Retinal Exam: Current - completed within last 12 months Dilated Retinal Exam month: March Dilated Retinal Exam year: 2023 Dilated Retinal Exam Findings: Outside provider. She reports no issue. Pertinent ROS Patient reports Neuropathic pain: No Patient reports Polyuria: No Patient reports Nocturia: No Patient reports Polydipsia: No Patient reports excess hunger: No Weight loss/gain: Not Applicable Frequency of forgetting or skipping diabetes medications (any reason): None. Current Medications 06/17/2024 DIABETES THERAPIES Medication Dosage Pharm Subclass insulin glargine (BASAGLAR KWIKPEN U-100 INSULIN) 100 unit/mL (3 mL) Inject 30 Units subcutaneously. Use in case of pump malfunctioning Insulin Analogs - Long Acting NOVOLOG U-100 INSULIN ASPART 100 unit/mL PER PUMP (MAX DAILY UNITS OF 80) Insulin Analogs - Rapid Acting OTHER Medication Dosage Pharm Subclass glucagon 3 mg/actuation nasal spray (BAQSIMI) Use 1 Warren in the nose as needed for low blood sugar. May repeat after 15 minutes using a new device if there is no response. Agents to treat Hypoglycemia (Hyperglycemics) LABS Hemoglobin A1C (POCT) (%) Date Value 06/17/2024 7.1 Labs from 2022 and prior are available on Care Everywhere. There is no recent lipid profile. It was normal in 2019. PAST MEDICAL HISTORY Diagnosis Date Type 1 diabetes (HCC) PAST SURGICAL HISTORY Procedure Laterality Date PAST SURGICAL HISTORY OF Tonsilectomy at age 9 years Social History Tobacco Use Smoking status: Never Smokeless tobacco: Never No family history on file. ALLERGIES No Known Allergies PHYS (more content not included)... Normal [facility] HEMOGLOBIN A1C (POC)on 06-17 HbA1c (Bld) [Mass fraction] 7.1 % Abnormal 4.3 - 5.6 % [facility] Comment on above: Location:Critical [facility], [address] , [place], [place], [address] Point of care (POC) Hemoglobin A1c (HGBA1C) testing is intended to assess glucose control and provide a management tool for patients known to have diabetes and their healthcare providers. Target HGBA1C levels may depend on specific clinical circumstances. POC HGBA1C is not intended for use as a diagnostic or screening test; laboratory-based testing should be used for diagnostic purposes. The following information is supplemental and may not be applicable to specific diabetes management situations: The POC device piping supervisor provides a normal range of 4.2% to 6.5% for the HGBA1C POC test. However, the [place] [employer] guidelines indicate that patients with HGBA1C in the range of 5.7% to 6.4% are at increased risk for development of diabetes and that intervention by lifestyle modification may be beneficial. A HGBA1C level greater than or equal to 6.5% is considered diagnostic of diabetes, pending confirmatory testing. Use of HGBA1C testing to evaluate glucose control may not be appropriate for patients with hemoglobin variants or other conditions (e.g. anemia) that alter red blood cell lifespan. Interpretation and review of laboratory results Abnormal [facility] Clin ic CNPNon 04-19-2024 CNPN Telephone (ENDOAL) CLINTON CORONA ([id number]) 2000 F Date Time Provider Department 04/19/24 ELIJAH CARDONA ENDOAL During your visit today, we recorded the following information about you: Marian Rosa 04/19/2024 11:23 AM Signed Left voicemail for patient to call [phone] to reschedule her NEW GDM appointment with Dr. Cardona. Allergies As of Date: 04/19/2024 (Not on File) Date Reviewed: Never Reviewed Problem List As Of Date: 04/19/2024 (None) Encounter Status:Closed by MARIAN ROSA on 04/19/24 [facility] CNPNon 04-16-2024 CNPN Telephone (ENDOAL) CLINTON CORONA ([id number]) 2000 F Date Time Provider Department 04/16/24 ELIJAH CARDONA ENDOAL During your visit today, we recorded the following information about you: Marian Rosa 04/16/2024 3:10 PM Signed Left voicemail for patient to call [phone] to reschedule, patient is NEW GDM and needs to be scheduled sooner. Allergies As of Date: 04/16/2024 (Not on File) Date Reviewed: Never Reviewed Problem List As Of Date: 04/16/2024 (None) Encounter Status:Closed by MARIAN ROSA on 04/16/24 [facility] Gynecology Office/Clinic Not adebayo 10-20-2023 Gynecology Office/Clinic Note Chief Complaint Chief Complaint Annual History of Present Illness Contraception Type: control pill Sexually Active: Yes Comments 10/17/23 13:44:00 23 y/o, G0, Engaged, Annual Exam, Last pap: 10/03/20 Neg. Colonoscopy/EGD: 01/01/19 Physical Exam Additional Vitals No qualifying data available. Assessment/Plan 1. Encounter for gynecological examination (general) (routine) without abnormal findings Medical Decision Making Chronic conditions NOT treated during this visit that affected my overall medical decision making: [] Treatment plans discussed but not opted for at this time: [] Prescribed medication that requires intensive monitoring for toxicity: [] I have reviewed the patient?s medication list for medication interactions/contrai ndications and/or for upcoming procedures: [yes or no] Time Spent with the Patient I have personally spent [] minutes on this date, directly related to today's patient visit, including pre and post visit work, for this date of service. Time listed does not include time spent on separately billable services. Problem List/Past Medical History Ongoing Diabetes Dysmenorrhea Encounter for gynecological examination (general) (routine) without abnormal findings IBS (irritable bowel syndrome) Medication management Menorrhagia Vaginal burning Vaginal itching Historical Diabetes Procedure/Surgical History dental excision REMOVE TONSILS AND ADENOIDS Colonoscopy Biopsy (01/01/2019) Esophagogastroduoden oscopy Biopsy (01/01/2019) Medications benzoyl peroxide 5% topical gel clindamycin 1% topical gel June Fe 12/20 oral tablet, 1 tabs, Oral, Daily, 11 refills Lotrisone 1%-0.05% topical cream, 1 vani, Topical, BID, 1 refills Lotrisone 1%-0.05% topical cream, 1 vani, Topical, BID, 1 refills NovoLIN 70/30, Subcutaneous Allergies No Known Allergies Social History Alcohol Current, 1-2 times per month Nutrition/Health Caffeine intake amount: black coffee daily. Sexual Sexually active: Yes. Sexually active at age 18 Years. Substance Abuse Denies All Tobacco Never (less than 100 in lifetime) Use:. Family History Heart attack: Grandmother (M) and Grandmother (P). Heart disease: Grandfather (P). Stroke: Grandmother (M) and Grandmother (P). Thyroid disease: Mother and Grandmother (M). Electronically Signed by Howard Jarvis 10/17/23 13:47 EST Su Ritchie PA-C Normal [facility] Comment on above: Order Comment: Adi bonds Chlamydia/GC,DNA Ampon 01-27 Chlamydia Probe Negative Normal NEG [facility] Comment on above: Result Comment: CHLA MYDIA TRACHOMATIS DNA not detected by nucleic acid amplification. This test is intended for medical purposes only and is not valid for the evaluation of suspected sexual abuse or for other forensic purposes. In certain contexts, culture may be required to meet applicable laws and regulations for diagnosis of C. trachomatis and N. gonorrhoeae infections. Per 2014 CDC recommendations, this test does not include confirmation of positive results by an alternative nucleic acid target. Performed By: #### S WCGP #### [facility] [place] [address] Public Speaking Professor: Geremias Armijo MD Gonorrhea Probe Negative Normal NEG [facility] Comment on above: Result Comment: NEIS SERIA GONORRHOEAE DNA not detected by nucleic acid amplification. This test is intended for medical purposes only and is not valid for the evaluation of suspected sexual abuse or for other forensic purposes. In certain contexts, culture may be required to meet applicable laws and regulations for diagnosis of C. trachomatis and N. gonorrhoeae infections. Per 2014 CDC recommendations, this test does not include confirmation of positive results by an alternative nucleic acid target. Performed By: #### S WCGP #### [employer] [address] [place] [address] [id number] Public Speaking Professor: Geremias Armijo MD CT ABDOMEN PELVIS W IV CONTR Theo 01-26-2023 CT ABDOMEN PELVIS W IV CONTRAST EXAMINATION: CT OF THE ABDOMEN AND PELVIS WITH CONTRAST 01/26/2023 2:28 am TECHNIQUE: CT of the abdomen and pelvis was performed with the administration of intravenous contrast. Multiplanar reformatted images are provided for review. Automated exposure control, iterative reconstruction, and/or weight based adjustment of the mA/kV was utilized to reduce the radiation dose to as low as reasonably achievable. COMPARISON: None. HISTORY: ORDERING SYSTEM PROVIDED HISTORY: [facility] pain TECHNOLOGIST PROVIDED HISTORY: [facility] pain Decision Support Exception - unselect if not a suspected or confirmed emergency medical condition->Emergency Medical Condition (MA) FINDINGS: Lower Chest: At the bases of lungs, there is no focal abnormality or acute process. No pleural effusion. No hiatal hernia. No pneumoperitoneum. Organs: No demonstrable abnormality in liver, gallbladder, spleen, pancreas, and bilateral adrenal glands. Bilateral kidneys appear normal without stone and without mass and without hydronephrosis. Bilateral ureters are of normal size without evidence of stone or obstruction. Bladder is mildly distended without stone or focal abnormality. GI/Bowel: No definable abnormality in visualized stomach. Small amount of gas scattered in multiple loops of small bowel without abnormal fluid levels. Cecum is in low position in lower pelvis, extended to midline, superior to bladder. The appendix is poorly visualized and there is no secondary sign of acute appendicitis. Appendix is likely to be located at the inferomedial aspect of the proximal aspect of cecum, just superior to bladder. There is no definable inflammatory process around cecum or in rest of pelvis. Evidence of moderate to large amount of stool present in cecum and moderate amount of stool with small amount of gas in the ascending colon. The hepatic flexure of colon and transverse colon contains large amount of stool and small amount of gas. In the descending colon small amount of stool and gas are scattered. The sigmoid colon contains small to moderate amount of stool and gas scattered. In the rectum there is moderate gas. No evidence of diverticulosis coli. No evidence of colitis. Pelvis: No evidence of localized abnormal fluid collection or inflammatory process in the pelvis. No evidence of pelvic pathologic lymphadenopathy or mass lesion. Uterus is deviated to the right. No adnexal mass. Peritoneum/Retroperi toneum: Abdominal aorta is of normal size without dissection. All mesenteric arteries and their major branches and bilateral renal arteries are patent and opacified. No evidence of periaortic or mesenteric pathologic lymphadenopathy. No evidence of ascites. Bones/Soft Tissues: No evidence of inguinal, femoral or ventral hernia. No diagnostic finding in the bony structure of lumbar spine, pelvic bones and joints or bilateral hip joints. IMPRESSION: Small amount of gas scattered in multiple loops of small bowel in the abdomen and pelvis without obvious fluid levels. Acute enteritis not excluded. Cecum is in low position in pelvis in the lower anterior pelvis, extended to midline. Appendix is questionably identified at the left side of proximal end of cecum at midline superior to bladder. There is no inflammatory process in this area. There is no secondary sign of acute appendicitis. No evidence of localized inflammatory process around cecum or in rest of pelvis. Moderate to large amount of stool present in right colon. Large amount of stool present in the mid colon. Rectosigmoid colon contains moderate amount of gas and small amount of stool. No definable diverticulosis coli and no sign of colitis. Normal kidneys bilaterally. No evidence of urinary calculus or obstructive uropathy. Normal-appearing liver, gallbladder, spleen, pancreas and adrenal glands. Interpreted by: Sundeep Schmidt MD Signed by: Sundeep Schmidt MD 01/26/[address] [facility] Comp Metabolic Profon 2022 Albumin [Mass/Vol] 3.9 g/dL Normal 3.5-5.2 [facility] Comment on above: Performed By: #### C DP, CP #### [facility] [address] [place], [place] [phone] Public Speaking Professor: Riley Rivera MD Albumin/Glob Ratio 1.6 Normal 1.0-2.5 [facility] Comment on above: Performed By: #### C DP, CP #### [facility] [address] [place], [place] [phone] Public Speaking Professor: Riley Rivera MD Alkaline Phos 75 U/L Normal 35-104 [facility] Comment on above: Performed By: #### C DP, CP #### [facility] [address] [place], [place] [phone] Public Speaking Professor: Riley Rivera MD ALT [Catalytic activity/Vol] 16 U/L Normal 5-33 [facility] Comment on above: Performed By: #### C DP, CP #### [facility] [address] [place] [address] Dr[place], [place] [phone] Public Speaking Professor: Riley Rivera MD Anion gap [Moles/Vol] 8 mmol/L Low 9-17 [facility] Comment on above: Performed By: #### C DP, CP #### [facility] [address] [place], [place] [phone] Public Speaking Professor: Riley Rivera MD AST [Catalytic activity/Vol] 15 U/L Normal <32 [facility] Comment on above: Performed By: #### C DP, CP #### [facility] [address] [place], [place] [phone] Public Speaking Professor: Riley Rivera MD Bilirubin [Mass/Vol] 0.2 mg/dL Low 0.3-1.2 [facility] Comment on above: Performed By: #### C DP, CP #### [facility] [address] [place], [place] [phone] Public Speaking Professor: Riley Rivera MD BUN/CRE Ratio 20 Normal 9-20 [facility] Comment on above: Performed By: #### C DP, CP #### [facility] [address] [place], [place] [phone] Public Speaking Professor: Riley Rivera MD Calcium [Mass/Vol] 9.1 mg/dL Normal 8.6-10.4 [facility] Comment on above: Performed By: #### C DP, CP #### [facility] [address] [place], [place] [phone] Public Speaking Professor: Riley Rivera MD Chloride [Moles/Vol] 104 mmol/L Normal 98-107 [facility] Comment on above: Performed By: #### C DP, CP #### [facility] [address] [place], [place] [phone] Public Speaking Professor: Riley Rivera MD CO2 [Moles/Vol] 27 mmol/L Normal 20-31 [facility] Comment on above: Performed By: #### C DP, CP #### [facility] [address] [place], [place] [phone] Public Speaking Professor: Riley Rivera MD Creatinine [Mass/Vol] 0.86 mg/dL Normal 0.50-0.90 [facility] Comment on above: Performed By: #### C DP, CP #### [facility] [address] [place] [address] Public Speaking Professor: Riley Rivera MD GFR/1.73 sq M.predicted among non-blacks MDRD (S/P/Bld) [Vol rate/Area] mL/min/{1.73_m2} Normal >60 [facility] Comment on above: Result Comment: These results are not intended for use in patients <18 years of age. eGFR results are calculated without a race factor using the 2020 CKD-EPI equation. Careful clinical correlation is recommended, particularly when comparing to results calculated using previous equations. The CKD-EPI equation is less accurate in patients with extremes of muscle mass, extra-renal metabolism of creatine, excessive creatine ingestion, or following therapy that affects renal tubular secretion. Performed By: #### C DP, CP #### [facility] [address] [place] [address] Public Speaking Professor: Riley Rivera MD Glucose [Mass/Vol] 170 mg/dL High 70-99 [facility] Comment on above: Performed By: #### C DP, CP #### [facility] [address] [place] [address] Public Speaking Professor: Riley Rivera MD Potassium [Moles/Vol] 3.7 mmol/L Normal 3.7-5.3 [facility] Comment on above: Performed By: #### C DP, CP #### [address] [place], [place] [phone] Public Speaking Professor: Riley Rivera MD Protein [Mass/Vol] 6.4 g/dL Normal 6.4-8.3 [facility] Comment on above: Performed By: #### C DP, CP #### [facility] [address] [place] [address] [place], [place] [phone] Public Speaking Professor: Riley Rivera MD Sodium [Moles/Vol] 139 mmol/L Normal 135-144 [facility] Comment on above: Performed By: #### C DP, CP #### [facility] [address] [place], [place] [phone] Public Speaking Professor: Riley Rivera MD Urea nitrogen [Mass/Vol] 17 mg/dL Normal 6-20 [facility] Comment on above: Performed By: #### C DP, CP #### [facility] [address] [place], [place] [phone] Public Speaking Professor: Riley Rivera MD HCG, ,Urineon 01-26 Beta HCG ( test) Ql (U) Negative Normal NEG [facility] Comment on above: Result Comment: Spec imens with hCG levels near the threshold of the test (25 mIU/mL) may give a negative or indeterminate result. In such cases, another test should be performed with a new specimen in 48-72 hours. If early is suspected clinically in this setting, correlation with quantitative serum b-hCG level is suggested. [facility] has confirmed the use of plasma for this test. This has not been cleared or approved by the U.S. Food and Drug Administration. The FDA has determined that such clearance is not necessary. Performed By: #### U HCG, UAMIC #### [facility] [address] [place] [address] [place] [address] Public Speaking Professor: Riley Rivera MD Lactic Acidon 01-26-2023 Lactate [Moles/Vol] 0.7 mmol/L Normal 0.5-2.2 [facility] Comment on above: Performed By: #### L ACTIC #### [facility] [address] [place] [address] Public Speaking Professor: Riley Rivera MD Trichomonas/Wet Prepon 01-26 Trichomonas/Wet Prep Specimen Descriptio n .VAGINA Direct Exam NO YEAST OBSERVED NO TRICHOMONAS SEEN NO CLUE CELLS SEEN Report Status FINAL 01/26/[address] [facility] Comment on above: Performed By: #### W P #### [facility] [address] [place] [address] Public Speaking Professor: Riley Rivera MD US DUP ABD PEL RETRO SCROT L IMITEDon 01-26-2023 US DUP ABD PEL RETRO SCROT LIMITED EXAMINATION: PELVIC ULTRASOUND; ULTRASOUND OF THE SCROTUM/TESTICLES WITH COLOR DOPPLER FLOW EVALUATION 01/26/2023 TECHNIQUE: Transabdominal and transvaginal pelvic duplex ultrasound using B-mode/noguera scaled imaging, Doppler spectral analysis and color flow Doppler was obtained. COMPARISON: None HISTORY: ORDERING SYSTEM PROVIDED HISTORY: pain to left adnexa, r/o torsion TECHNOLOGIST PROVIDED HISTORY: pain to left adnexa, r/o torsion FINDINGS: Measurements: Uterus: 7.3 cm in length. Endometrial stripe: 1 mm in thickness. Right Ovary:1.8 x 1.1 x 1.8 cm Left Ovary: 2.5 x 1.9 x 1.6 cm Ultrasound Findings: Uterus: Uterus demonstrates normal myometrial echotexture. Endometrial stripe: Endometrial stripe is within normal limits. Right Ovary: Right ovary is within normal limits. There is normal arterial and venous Doppler flow. Left Ovary: Left ovary is within normal limits. There is normal arterial and venous Doppler flow. Free Fluid: No evidence of free fluid. IMPRESSION: 1. Unremarkable pelvic ultrasound. 2. Normal Doppler flow within the ovaries. Interpreted by: Burak Paulson MD Signed by: Burak Paulson MD 01/26/[address] [facility] US NON OB TRANSVAGINALon US NON OB TRANSVAGINAL EXAMINATION: PELVIC ULTRASOUND; ULTRASOUND OF THE SCROTUM/TESTICLES WITH COLOR DOPPLER FLOW EVALUATION 01/26/2023 TECHNIQUE: Transabdominal and transvaginal pelvic duplex ultrasound using B-mode/noguera scaled imaging, Doppler spectral analysis and color flow Doppler was obtained. COMPARISON: None HISTORY: ORDERING SYSTEM PROVIDED HISTORY: pain to left adnexa, r/o torsion TECHNOLOGIST PROVIDED HISTORY: pain to left adnexa, r/o torsion FINDINGS: Measurements: Uterus: 7.3 cm in length. Endometrial stripe: 1 mm in thickness. Right Ovary:1.8 x 1.1 x 1.8 cm Left Ovary: 2.5 x 1.9 x 1.6 cm Ultrasound Findings: Uterus: Uterus demonstrates normal myometrial echotexture. Endometrial stripe: Endometrial stripe is within normal limits. Right Ovary: Right ovary is within normal limits. There is normal arterial and venous Doppler flow. Left Ovary: Left ovary is within normal limits. There is normal arterial and venous Doppler flow. Free Fluid: No evidence of free fluid. IMPRESSION: 1. Unremarkable pelvic ultrasound. 2. Normal Doppler flow within the ovaries. Interpreted by: Burak Paulson MD Signed by: Burak Paulson MD 01/26/[address] [facility] US PELVIS COMPLETEon 023 US PELVIS COMPLETE EXAMINATION: PELVIC ULTRASOUND; ULTRASOUND OF THE SCROTUM/TESTICLES WITH COLOR DOPPLER FLOW EVALUATION 01/26/2023 TECHNIQUE: Transabdominal and transvaginal pelvic duplex ultrasound using B-mode/noguera scaled imaging, Doppler spectral analysis and color flow Doppler was obtained. COMPARISON: None HISTORY: ORDERING SYSTEM PROVIDED HISTORY: pain to left adnexa, r/o torsion TECHNOLOGIST PROVIDED HISTORY: pain to left adnexa, r/o torsion FINDINGS: Measurements: Uterus: 7.3 cm in length. Endometrial stripe: 1 mm in thickness. Right Ovary:1.8 x 1.1 x 1.8 cm Left Ovary: 2.5 x 1.9 x 1.6 cm Ultrasound Findings: Uterus: Uterus demonstrates normal myometrial echotexture. Endometrial stripe: Endometrial stripe is within normal limits. Right Ovary: Right ovary is within normal limits. There is normal arterial and venous Doppler flow. Left Ovary: Left ovary is within normal limits. There is normal arterial and venous Doppler flow. Free Fluid: No evidence of free fluid. IMPRESSION: 1. Unremarkable pelvic ultrasound. 2. Normal Doppler flow within the ovaries. Interpreted by: Burak Paulson MD Signed by: Burak Paulson MD 01/26/[address] [facility] Urinalysis w/ Microon 2022 Bacteria 3+ Abnormal NONE [facility] Comment on above: Performed By: #### U HCG, UAMIC #### [facility] [address] [place] [address] [place] [address] Public Speaking Professor: Riley Rivera MD Bilirubin, SemiQt,Ur Negative Normal NEG [facility] Comment on above: Performed By: #### U HCG, UAMIC #### [facility] [address] [place] [address] Public Speaking Professor: Riley Rivera MD Blood, Urine Negative Normal NEG [facility] Comment on above: Performed By: #### U HCG, UAMIC #### [facility] [address] [place] [address] [place] [address] Public Speaking Professor: Riley Rivera MD Clarity (U) SLIGHTLY CLOUDY Abnormal CLEAR [facility] Comment on above: Performed By: #### U HCG, UAMIC #### [facility] [address] [place], [place] [phone] Public Speaking Professor: Riley Rivera MD Color (U) Yellow Normal YEL [facility] Comment on above: Performed By: #### U HCG, UAMIC #### [facility] [address] [place], [place] [phone] Public Speaking Professor: Riley Rivera MD Epithelial cells LM Ql (Urine sed) 2 TO 5 Normal 0-25 [facility] Comment on above: Performed By: #### U HCG, UAMIC #### [facility] [address] [place], [place] [phone] Public Speaking Professor: Riley Rivera MD Glucose Ql (U) Negative Normal NEG [facility] in Hospital Comment on above: Performed By: #### U HCG, UAMIC #### [facility] [address] [place] [address] Dr. [place], [facility] Public Speaking Professor: Riley Rivera MD Ketones Ql (U) Negative Normal NEG [facility] in Hospital Comment on above: Performed By: #### U HCG, UAMIC #### [address] [place], [facility] Public Speaking Professor: Riley Rivera MD Leukocyte esterase Test strip Ql (U) Negative Normal NEG [facility] Comment on above: Performed By: #### U HCG, UAMIC #### [facility] [address] [place] [address] Dr. [place], [facility] Public Speaking Professor: Riley Rivera MD Nitrite,Ur Negative Normal NEG [facility] Comment on above: Performed By: #### U HCG, UAMIC #### [address] [place] [address] Public Speaking Professor: Riley Rivera MD PH,Ur 7.5 Normal 5.0-9.0 [facility] Comment on above: Performed By: #### U HCG, UAMIC #### [facility] [address] [place] [address] [place] [address] Public Speaking Professor: Riley Rivera MD Protein Ql (U) Negative Normal NEG [facility] Comment on above: Performed By: #### U HCG, UAMIC #### [facility] [address] [place], [place] [phone] Public Speaking Professor: Riley Rivera MD Spec. [place],Ur 1.015 Normal 1.010-1.020 [facility] Comment on above: Performed By: #### U HCG, UAMIC #### [facility] [address] [place] [address] Public Speaking Professor: Riley Rivera MD Urine RBC's 0 TO 2 Normal 0-2 [facility] Comment on above: Performed By: #### U HCG, UAMIC #### [facility] [address] [place] [address] [place] [address] Public Speaking Professor: Riley Rivera MD Urine WBC's 0 TO 2 Normal 0-5 [facility] Comment on above: Performed By: #### U HCG, UAMIC #### [facility] [address] [place] [address] [place] [address] Public Speaking Professor: Riley Rivera MD Urobilinogen,Ur Normal Normal NORM [facility] Comment on above: Performed By: #### U HCG, UAMIC #### [facility] [address] [place] [address] Dr. [place], [place] [address] Public Speaking Professor: Riley Rivera MD CBC with Diffon 01-25-2023 Abs. Basophil 0.05 k/uL Normal 0.00-0.20 [facility] Comment on above: Performed By: #### C DP, CP #### [facility] [address] [place], [place] [id number] Public Speaking Professor: Riley Rivera MD Abs.Imm.Granulocyte <0.03 Normal 0.00-0.30 [facility] Comment on above: Performed By: #### C DP, CP #### [facility] [address] [place] [address] Dr. Houser, [place] [address] Public Speaking Professor: Riley Rivera MD Abs.Neutrophil (Seg) 4.31 k/uL Normal 1.50-8.10 [facility] Comment on above: Performed By: #### C DP, CP #### [address] [place]er, [place] [address] Public Speaking Professor: Riley Rivera MD Basophils/100 WBC (Bld) 1 % Normal 0-2 [facility] Comment on above: Performed By: #### C DP, CP #### [address] [place]er, [place] [address] Public Speaking Professor: Riley Rivera MD Eosinophils (Bld) [#/Vol] 0.16 10*3/uL Normal 0.00-0.44 [facility] Comment on above: Performed By: #### C DP, CP #### [address] [place], [place] [address] Public Speaking Professor: Riley Rivera MD Eosinophils/100 WBC (Bld) 2 % Normal 1-4 [facility] Comment on above: Performed By: #### C DP, CP #### [address] Houser, [facility]83 Public Speaking Professor: Riley Rivera MD Erythrocyte distribution width (RBC) [Ratio] 12.9 % Normal 11.8-14.4 [facility] Comment on above: Performed By: #### C DP, CP #### [address] [place]er, [place] [address] Public Speaking Professor: Riley Rivera MD Hematocrit (Bld) [Volume fraction] 45.4 % Normal 36.3-47.1 [facility] Comment on above: Performed By: #### C DP, CP #### [address] Houser, [facility]83 Public Speaking Professor: Riley Rivera MD Hemoglobin (Bld) [Mass/Vol] 15.0 g/dL Normal 11.9-15.1 [facility] Comment on above: Performed By: #### C DP, CP #### [facility] [address] [place], [place] [phone] Public Speaking Professor: Riley Rivera MD Immature granulocytes/100 WBC (Bld) 0 % Normal 0 [facility] Comment on above: Performed By: #### C DP, CP #### [facility] [address] [place] [phone] Public Speaking Professor: Riley Rivera MD Lymphocytes (Bld) [#/Vol] 3.59 10*3/uL Normal 1.10-3.70 [facility] Comment on above: Performed By: #### C DP, CP #### [address] [place]er, [facility]83 Public Speaking Professor: Riley Rivera MD Lymphocytes/100 WBC (Bld) 40 % Normal 24-43 [facility] Comment on above: Performed By: #### C DP, CP #### [address] [place], [place] [phone] Public Speaking Professor: Riley Rivera MD MCH (RBC) [Entitic mass] 26.0 pg Normal 25.2-33.5 [facility] Comment on above: Performed By: #### C DP, CP #### [address] [place], [place] [phone] Public Speaking Professor: Riley Rivera MD MCHC (RBC) [Mass/Vol] 33.0 g/dL Normal 28.4-34.8 [facility] Comment on above: Performed By: #### C DP, CP #### [facility] [address] [place] [address] Public Speaking Professor: Riley Rivera MD MCV (RBC) [Entitic vol] 78.7 fL Low 82.6-102.9 [facility] Comment on above: Performed By: #### C DP, CP #### [facility] [address] [place] [address] Public Speaking Professor: Riley Rivera MD Monocytes (Bld) [#/Vol] 0.75 10*3/uL Normal 0.10-1.20 [facility] Comment on above: Performed By: #### C DP, CP #### [address] [place] [address] Public Speaking Professor: Riley Rivera MD Monocytes/100 WBC (Bld) 8 % Normal 3-12 [facility] Comment on above: Performed By: #### C DP, CP #### [address] [place], [facility]83 Public Speaking Professor: Riley Rivera MD Neutrophil (Seg) 49 % Normal 36-65 [facility] Comment on above: Performed By: #### C DP, CP #### [address] [place], [place] [phone] Public Speaking Professor: Riley Rivera MD NRBC Automated 0.0 per [address] [facility] Comment on above: Performed By: #### C DP, CP #### [address] [place], [facility]83 Public Speaking Professor: Riley Rivera MD Platelet mean volume (Bld) [Entitic vol] 9.9 fL Normal 8.1-13.5 [facility] Comment on above: Performed By: #### C DP, CP #### [address] [place] [address] Public Speaking Professor: Riley Rivera MD Platelets (Bld) [#/Vol] 300 10*3/uL Normal 138-453 [facility] Comment on above: Performed By: #### C DP, CP #### [facility] [address] [place], [place] [id number] Public Speaking Professor: Riley Rivera MD RBC (Bld) [#/Vol] 5.77 10*6/uL High 3.95-5.11 [facility] Comment on above: Performed By: #### C DP, CP #### [facility] [address] [place], [place] [phone] Public Speaking Professor: Riley Rivera MD WBC (Bld) [#/Vol] 8.9 10*3/uL Normal 3.5-11.3 [facility] Comment on above: Performed By: #### C DP, CP #### [facility] [address] [place], [place] [phone] Public Speaking Professor: Riley Rivera MD Vital Signs Date Time Vital Sign Value Performing Clinician Faci lity 02-08-2025 14:56-0400 Body height 162.56 cm [facility] 02-08-2025 14:56-0400 Body mass index (BMI) [Ratio] 32.2 kg/m2 [facility] 02-08-2025 14:56-0400 Body temperature 98.3 [degF] [facility] 02-08-2025 14:56-0400 Body weight 85.27 kg [facility] 02-08-2025 14:56-0400 Diastolic blood pressure 76 mm[Hg] [facility] 02-08-2025 14:56-0400 Heart rate 98 /min [facility] 02-08-2025 14:56-0400 SaO2% (BldA) [Mass fraction] 97 % [facility] 02-08-2025 14:56-0400 Systolic blood pressure 122 mm[Hg] [facility] 01-24-2025 14:57-0500 Body height 162.56 cm [facility] 01-24-2025 14:57-0500 Body mass index (BMI) [Ratio] 32.5 kg/m2 [facility] 01-24-2025 14:57-0500 Body temperature 97.4 [degF] [facility] 01-24-2025 14:57-0500 Body weight 86.18 kg [facility] 01-24-2025 14:57-0500 Diastolic blood pressure 64 mm[Hg] [facility] 01-24-2025 14:57-0500 Heart rate 99 /min [facility] 01-24-2025 14:57-0500 SaO2% (BldA) [Mass fraction] 100 % [facility] 01-24-2025 14:57-0500 Systolic blood pressure 118 mm[Hg] [facility] 01-07-2025 15:54-0500 Blood Pressure Location Melody Saxena [facility] 01-07-2025 15:54-0500 Body temperature 98.06 [degF] Melody Saxena [facility] 01-07-2025 15:54-0500 Diastolic blood pressure 76 mm[Hg] Melody Saxena [facility] 01-07-2025 15:54-0500 Heart rate 94 /min Melody Saxena [facility] 01-07-2025 15:54-0500 SaO2% (BldA) [Mass fraction] 96 % Melody Saxena [facility] 01-07-2025 15:54-0500 Systolic blood pressure 114 mm[Hg] Melody Saxena [facility] 12-02-2024 11:03-0500 Body mass index (BMI) [Ratio] 31.76 kg/m2 Manda Yolanda DO Work Phone: [facility] 12-02-2024 11:03-0500 Body weight 83.92 kg Manda Yolanda DO Work Phone: [facility] 01-02-2025 11:03-0500 Diastolic blood pressure 74 mm[Hg] Manda Nataprawira DO Work Phone: [facility] 12-02-2024 11:03-0500 Systolic blood pressure 116 mm[Hg] Manda Nataprawira DO Work Phone: [facility] 11-22-2024 10:04-0500 Body height 162.6 cm My Petznick DO Work Phone: [facility] 11-22-2024 10:04-0500 Body mass index (BMI) [Ratio] 31.58 kg/m2 My Petznick DO Work Phone: [facility] 11-22-2024 10:04-0500 Body temperature 98.29 [degF] My Petznick DO Work Phone: [facility] 11-22-2024 10:04-0500 Body weight 83.46 kg My Petznick DO Work Phone: [facility] 11-22-2024 10:04-0500 Diastolic blood pressure 62 mm[Hg] My Petznick DO Work Phone: [facility] 11-22-2024 10:04-0500 Heart rate 85 /min My Petznick DO Work Phone: [facility] 11-22-2024 10:04-0500 SaO2% (BldA) [Mass fraction] 96 % My Petznick DO Work Phone: [facility] 11-22-2024 10:04-0500 Systolic blood pressure 108 mm[Hg] My Petznick DO Work Phone: [facility] 10-29-2024 11:10-0500 Blood Pressure Location Watson Escobar [facility] 10-29-2024 11:10-0500 Diastolic blood pressure 70 mm[Hg] Watson Escobar [facility] 10-29-2024 11:10-0500 Heart rate 94 /min Watson Escobar [facility] 10-29-2024 11:10-0500 Respiratory rate 16 /min Watson Escobar [facility] 10-29-2024 11:10-0500 SaO2% (BldA) [Mass fraction] 98 % Watson Escobar [facility] 10-29-2024 11:10-0500 Systolic blood pressure 110 mm[Hg] Watson Escobar [facility] 07-21-2024 14:47-0400 Body height 162.56 cm [facility] 07-21-2024 14:47-0400 Body mass index (BMI) [Ratio] 30.7 kg/m2 [facility] 07-21-2024 14:47-0400 Body weight 81.19 kg [facility] 07-21-2024 14:47-0400 Diastolic blood pressure 60 mm[Hg] [facility] 07-21-2024 14:47-0400 Heart rate 75 /min [facility] 07-21-2024 14:47-0400 SaO2% (BldA) [Mass fraction] 100 % [facility] 07-21-2024 14:47-0400 Systolic blood pressure 110 mm[Hg] [facility] 06-28-2024 10:33-0400 Body height 162.56 cm [facility] 06-28-2024 10:33-0400 Body mass index (BMI) [Ratio] 29.8 kg/m2 [facility] 06-28-2024 10:33-0400 Body weight 78.92 kg [facility] 06-28-2024 10:33-0400 Diastolic blood pressure 62 mm[Hg] [facility] 06-28-2024 10:33-0400 Heart rate 90 /min [facility] 06-28-2024 10:33-0400 SaO2% (BldA) [Mass fraction] 98 % [facility] 06-28-2024 10:33-0400 Systolic blood pressure 110 mm[Hg] [facility] 06-17-2024 08:49-0400 Body height 162.6 cm Odell Lyman MD Work Phone: [facility] 06-17-2024 08:49-0400 Body mass index (BMI) [Ratio] 30.2 kg/m2 Odell Lyman MD Work Phone: [facility] 06-17-2024 08:49-0400 Body weight 79.8 kg Odell Lyman MD Work Phone: [facility] 06-17-2024 08:49-0400 Diastolic blood pressure 79 mm[Hg] Odell Lyman MD Work Phone: [facility] 06-17-2024 08:49-0400 Heart rate 81 /min Odell Lyman MD Work Phone: [facility] 06-17-2024 08:49-0400 Respiratory rate 16 /min Odell Lyman MD Work Phone: [facility] 06-17-2024 08:49-0400 Systolic blood pressure 122 mm[Hg] Odell Lyman MD Work Phone: [facility] Encounters Encounter Date Encounter Type Care Provider Facility Start: 02-08-2025 End: 02-08-2025 ambulatory [facility] Work Phone: Start: 02-08-2025 End: 02-08-2025 Patient encounter procedure [facility] Work Phone: Start: 01-24-2025 End: 01-24-2025 ambulatory [facility] Work Phone: Start: 01-24-2025 End: 01-24-2025 Patient encounter procedure [facility] Work Phone: Start: 01-07-2025 End: 01-07-2025 ambulatory Melody Saxena Facility:[facility] Start: 01-07-2025 End: 01-07-2025 Lab Drop off Melody Saxena [facility] Start: 01-07-2025 End: 01-07-2025 ambulatory Melody Saxena Facility: [facility] Start: 01-07-2025 End: 01-07-2025 Patient encounter procedure Melody Cartagena Hemanth [facility] Start: 12-03-2024 End: 12-14-2024 External Result Encounter Manda Guerrero DO Work Phone: [facility] External Department Unsolicited Start: 12-03-2024 End: 12-14-2024 External Result Encounter Manda Guerrero DO Work Phone: [facility] External Department Unsolicited Start: 12-02-2024 End: 12-02-2024 Patient encounter status Manda Guerrero DO Work Phone: [facility] Start: 12-02-2024 End: 12-02-2024 Periodic preventive med est patient 18-39 yrs Manda Guerrero DO Work Phone: [facility] Comment on above: Encounter for gyneco logical examination without abnormal finding (Primary Dx); Screening for malignant neoplasm of cervix; Family planning; Screening for thyroid disorder; History of PCOS; Type 1 diabetes mellitus without complication (CMS/HCC) Start: 12-02-2024 End: 12-02-2024 ambulatory MANDA GUERRERO Not Available Start: 11-22-2024 End: 11-22-2024 Office outpatient visit 25 minutes My Saenz DO Work Phone: [facility] Comment on above: Type 1 diabetes roselyn itus without complication (CMS/HCC) Start: 11-22-2024 End: 11-22-2024 ambulatory MY SAENZ Not Available Start: 10-29-2024 End: 10-29-2024 ambulatory Watson Escobar Facility:[facility] Start: 10-29-2024 End: 10-29-2024 Patient encounter procedure Watson Escobar [facility] Start: 10-25-2024 End: 10-25-2024 Telephone encounter My Saenz DO Work Phone: [facility] Start: 10-06-2024 End: 10-06-2024 Office outpatient visit 10 minutes Adrián Northeim PA Work Phone: [facility] Comment on above: Onychomycosis Start: 10-06-2024 End: 10-06-2024 ambulatory ADRIÁN NORTHEIM Not Available Start: 10-06-2024 End: 10-06-2024 Bamboo flowsheet Adrián Northeim PA Work Phone: [facility] Start: 10-06-2024 End: 10-06-2024 Bamboo flowsheet Adrián Northeim PA Work Phone: [facility] Start: 08-25-2024 End: 08-25-2024 Office outpatient visit 15 minutes Adrián Northeim PA Work Phone: [facility] Comment on above: Onychomycosis Start: 08-25-2024 End: 08-25-2024 ambulatory ADRIÁN NORTHEIM Not Available Start: 08-25-2024 End: 08-25-2024 Bamboo flowsheet Adrián Northeim PA Work Phone: [facility] Start: 08-25-2024 End: 08-25-2024 Bamboo flowsheet Adrián Northeim PA Work Phone: [facility] Start: 07-21-2024 End: 07-21-2024 ambulatory [facility] Work Phone: Start: 07-21-2024 End: 07-21-2024 Patient encounter procedure [facility] Work Phone: Start: 07-06-2024 End: 07-06-2024 ambulatory MY SAENZ Not Available Start: 07-04-2024 E-mail encounter fro m caregiver Odell Lyman MD Work Phone: Endocrinology Start: 07-04-2024 Patient encounter procedure Odell Lyman MD Work Phone: Endocrinology Comment on above: Test results Start: 06-29-2024 ambulatory Odell Lyman MD Work Phone: Endocrinology Start: 06-29-2024 Patient encounter procedure Odell Lyman MD Work Phone: Endocrinology Comment on above: Uploading pump Start: 06-28-2024 Telephone encounter Odell thomas MD Work Phone: Endocrinology Comment on above: Medication Problem Start: 06-28-2024 Patient encounter status [facility] Start: 06-28-2024 End: 06-28-2024 ambulatory [facility] Work Phone: Start: 06-28-2024 End: 06-28-2024 Encounter for general adult medical examination without abnormal findings [facility] Start: 06-28-2024 End: 06-28-2024 Patient encounter procedure [facility] Work Phone: Start: 06-17-2024 End: 06-17-2024 ambulatory ODELL LYMAN Facility:[facility] Start: 06-17-2024 End: 06-17-2024 Patient encounter procedure Odell Lyman MD Work Phone: Endocrinology Comment on above: Type 1 diabetes roselyn itus with hypoglycaemia (HCC) (Primary Dx); Type 1 diabetes mellitus without complication (HCC); Insulin pump status; Insulin pump titration Start: 04-19-2024 Telephone encounter Elijah norris DO Work Phone: Endocrinology Start: 04-16-2024 Telephone encounter Elijah norris DO Work Phone: Endocrinology Start: 01-19-2024 End: 01-19-2024 ambulatory MY SAENZ Not Available Start: 10-20-2023 End: 10-21-2023 ambulatory Su Ritchie PA-C Facility:[facility] Start: 01-25-2023 End: 01-26-2023 Emergency department patient visit [facility] Start: 10-03-2020 End: 10-03-2020 Subsequent hospital visit by physician Franki CRAWFORD Laboratory Procedures Date Procedure Procedure Detail Performing Clinician Start: 12-03-2024 Cortisol total Manda leonardprarubi DO Work Phone: Start: 11-22-2024 Hemoglobin glycosyla nicole a1c My Saenz DO Work Phone: Start: 06-17-2024 Hemoglobin A1c/Hemoglobin.total in Blood Odell Lyman MD Work Phone: Plan of Treatment Date Care Activity Detail Author Start: 03-15-2026 Glaucoma screening Diabetes: Retinopathy Screening [facility] Start: 12-05-2025 End: 12-05-2025 Patient encounter procedure 12/05/2025 3:30 PM EST Office Visit [facility] [address] [address] Manda Guerrero, DO [address] [address] [facility] Start: 07-05-2025 Urine screening for protein Diabetes: Urine Protein Screening [facility] Start: 06-17-2025 Diabetic foot examination Diabetic Foot Exam [facility] Start: 03-21-2025 End: 03-21-2025 Patient encounter procedure 03/21/2025 10:30 AM EDT Office Visit [facility] [address] [place] [phone] My Saenz DO [address] [place] [address] [facility] Start: 02-20-2025 Hemoglobin A1c measurement Diabetes: Hemoglobin A1C [facility] Start: 12-24-2024 End: 12-24-2024 Patient encounter procedure 12/24/2024 3:00 PM EST [facility] [address] [place] [address] Odell Lyman MD [address] [place] [address] and in 6 months with me. Endocrinology Comment on above: and in 6 months with me. Start: 12-18-2024 Hemoglobin A1c measurement HbA1C [facility] Start: 12-02-2024 End: 12-02-2024 Patient encounter procedure [facility] Comment on above: Encounter for gynecological examination without abnormal finding (Primary Dx); Screening for malignant neoplasm of cervix; Family planning Start: 11-22-2024 End: 11-22-2024 Patient encounter procedure 11/22/2024 10:15 AM EST Office Visit [facility] [address] [place] [address] My Saenz DO [address] [place] [address] [facility] Start: 10-06-2024 End: 10-06-2024 Patient encounter procedure [facility] Comment on above: Arrived Start: 09-24-2024 End: 09-24-2024 Patient encounter procedure 09/24/2024 9:15 AM EDT Office Visit Endocrinology [address] [place] [address] Monika Rice APRN.[employer] [address] [place] [address] Return in about 3 months (around 09/17/2024) for with nurse practitioner . Endocrinology Comment on above: Return in about 3 months (around 024) for with nurse practitioner . Start: 09-17-2024 Hemoglobin A1c measurement Diabetes: Hemoglobin A1C [facility] Start: 08-25-2024 End: 08-25-2024 Patient encounter procedure 08/25/2024 4:00 PM EDT Office Visit [facility] [address] [place] [phone] Adrián Wakefield PA [address] [place] [address] Arrived [facility] Comment on above: Arrived Start: 08-01-[address] [facility] Start: 06-22-2024 End: 06-22-2024 Patient encounter procedure 06/22/2024 11:00 AM EDT Office Visit Endocrinology [address] [place] [address] Odell Lyman MD [address] [place] [address] Type I Diabetic (not per pt) Endocrinology Comment on above: Type I Diabetic (not per pt) Start: 06-17-2024 End: 09-16-2024 Comprehensive metabolic 2000 panel - Serum or Plasma COMPREHENSIVE METABOLIC PANEL Lab Routine Type 1 diabetes mellitus with hypoglycaemia (HCC) Expected: 06/17/2024, Expires: 09/16/2024 [facility] Work Phone: Comment on above: Expected: 06/17/2024, Expires: Start: 06-17-2024 End: 09-16-2024 Lipid 1996 panel - Serum or Plasma LIPID PANEL BASIC Lab Routine Type 1 diabetes mellitus with hypoglycaemia (HCC) Expected: 06/17/2024, Expires: 09/16/[address] [facility] Comment on above: Expected: 06/17/2024, Expires: Start: 06-17-2024 End: 09-16-2024 Microalbumin/Creatinine [Mass Ratio] in Urine ALBUMIN/CREATININE RATIO, URINE Lab Routine Type 1 diabetes mellitus with hypoglycaemia (HCC) Expected: 06/17/2024, Expires: 09/16/[address] [facility] Comment on above: Expected: 06/17/2024, Expires: Start: 06-17-2024 End: 09-16-2024 Thyrotropin [Units/volume] in Serum or Plasma THYROID STIMULATING HORMONE Lab Routine Type 1 diabetes mellitus with hypoglycaemia (HCC) Expected: 06/17/2024, Expires: 09/16/[address] [facility] Comment on above: Expected: 06/17/2024, Expires: Start: 05-10-2024 End: 05-10-2024 Patient encounter procedure 05/10/2024 2:40 PM EDT Office Visit Endocrinology [address] [place] [address] Elijah Cardona, [address] [place], [place] [id number] Type 1 diabetic Endocrinology Comment on above: Type 1 diabetic Start: 12-01-2023 Behavioral Health Screening Behavioral Health Screening [facility] Start: 08-01-2023 Covid-19 Vaccine ( season) Covid-19 Vaccine ( season) [facility] Start: 07-01-2021 Urine microalbumin profile DTaP,Tdap,Td Vaccine (7 - Td or Tdap) [facility] Start: 08-01-2020 Influenza vaccination Flu vaccine (#1) [place], [place] Start: 2020 Screening for malignant neoplasm of cervix [facility] Start: 12-19-2019 Creatinine measurement Creatinine monitoring [place], [place] Start: 12-19-2019 Diabetic microalbuminuria test Diabetic microalbuminuria test [place] Start: 12-19-2019 Hepatitis B surface antibody level LDL Cholesterol [facility] Start: 12-19-2019 Lipid panel Lipid screen [place], [place] Start: 12-19-2019 Potassium monitoring Potassium monitoring [place] Start: 2018 DTaP/Tdap/Td vaccine (1 - Tdap) DTaP/Tdap/Td vaccine (1 - Tdap) [place] Start: 2018 Hepatitis B Vaccine (1 of 3 - 19+ 3-dose series) Hepatitis B Vaccine (1 of 3 - 19+ 3-dose series) [facility] Start: 2018 Hepatitis B vaccine (1 of 3 - Risk 3-dose series) Hepatitis B vaccine (1 of 3 - Risk 3-dose series) [place] Start: 2018 Urine microalbumin profile DTaP,Tdap,Td Vaccine (1 - Tdap) [facility] Start: 2017 Annual PCP Team Chronic Disease Visit Annual PCP Team Chronic Disease Visit [facility] Start: 2017 Anxiety Screening Anxiety Screening [facility] Start: 2017 Depression Screening Depression Screening [facility] Start: 2017 Hepatitis C screening Hepatitis C Screening [facility] Start: 2017 HIV screening HIV Screening [facility] Start: 04-29-2016 HbA1c (Bld) [Mass fraction] A1C test (Diabetic or Prediabetic) [place] Start: 2015 Screening for Chlamydia trachomatis Chlamydia screen [place] Start: 2014 HIV screening HIV screen [place] Start: 2014 HPV Vaccine (1 - 3-dose series) HPV Vaccine (1 - 3-dose series) [facility] Start: 2013 Peds To Adult Transition Annual Assessment Peds To Adult Transition Annual Assessment [facility] Start: 2011 Peds To Adult Transition Initial Discussion Peds To Adult Transition Initial Discussion [facility] Start: 05-04-2010 Pneumococcal vaccination Pneumococcal Vaccine (2 of 2 - PCV) [facility] Start: 2010 HPV vaccine (1 - 2-dose series) HPV vaccine (1 - 2-dose series) [place] Start: 2009 Diabetic foot examination Diabetic foot exam [place], [place] Start: 2009 Diabetic retinal exam Diabetic retinal exam [place], [place] Start: 2009 Glaucoma screening Dilated Retinal Exam [facility] Start: 2009 Hepatitis B screening Urine Albumin:Creatinine Ratio [facility] Start: 2005 Pneumococcal 0-64 years Vaccine (1 of 1 - PPSV23) Pneumococcal 0-64 years Vaccine (1 of 1 - PPSV23) [place] Start: 2000 Varicella vaccine (1 of 2 - 2-dose childhood series) Varicella vaccine (1 of 2 - 2-dose childhood series) [place] Cortisol Cortisol Lab Rou ben Encounter for gynecological examination without abnormal finding History of PCOS Type 1 diabetes mellitus without complication (CMS/HCC) Ordered: 12/02/2024 [facility] Comment on above: Ordered: 12/02/2024 Estrone Estrone Lab Rout ine Encounter for gynecological examination without abnormal finding History of PCOS Type 1 diabetes mellitus without complication (CMS/HCC) Ordered: 12/02/2024 [facility] Comment on above: Ordered: 12/02/2024 End: 10-03-2020 Hepatitis B Surface Antibody Hepatitis B Surface Antibody Lab Routine Once for 1 Occurrences starting 10/03/2020 until 10/03/2020 [place] Comment on above: Once for 1 Occurrences starting 10/03/20 20 until 10/03/2020 Hepatitis B Surface Antibody Hepatitis B Surface Antibody Lab Routine 10/03/2020 2:03 PM [place] Luteinizing hormone Luteinizing hormone Lab Routine Encounter for gynecological examination without abnormal finding History of PCOS Type 1 diabetes mellitus without complication ([facility]/HCC) Ordered: 12/02/2024 [facility] Comment on above: Ordered: 12/02/2024 End: 10-03-2020 Mumps Antibody, IgG Mumps Antibody, IgG Lab Routine Once for 1 Occurrences starting 10/03/2020 until 10/03/2020 [place] Comment on above: Once for 1 Occurrences starting 10/03/20 20 until 10/03/2020 Mumps Antibody, IgG Mumps Antibo dy, IgG Lab Routine 10/03/2020 2:03 PM [place] Progesterone Progesterone Lab Routine Encounter for gynecological examination without abnormal finding History of PCOS Type 1 diabetes mellitus without complication ([facility]/HCC) Ordered: 12/02/2024 [facility] Comment on above: Ordered: 12/02/2024 Prolactin Prolactin Lab Ro utine Encounter for gynecological examination without abnormal finding History of PCOS Type 1 diabetes mellitus without complication ([facility]/HCC) Ordered: 12/02/2024 [facility] Comment on above: Ordered: 12/02/2024 End: 10-03-2020 Rubella antibody, IgG Rubella antibody, IgG Lab Routine Once for 1 Occurrences starting 10/03/2020 until 10/03/2020 [place] Comment on above: Once for 1 Occurrences starting 10/03/20 20 until 10/03/2020 Rubella antibody, IgG Rubella an tibody, IgG Lab Routine 10/03/2020 2:03 PM [place] End: 10-03-2020 Rubeola Antibody, IgG Rubeola Antibody, IgG Lab Routine Once for 1 Occurrences starting 10/03/2020 until 10/03/2020 [place] Comment on above: Once for 1 Occurrences starting 10/03/20 20 until 10/03/2020 Rubeola Antibody, IgG Rubeola An tibody, IgG Lab Routine 10/03/2020 2:03 PM [place] Testosterone, free, total Testosterone, free, total Lab Routine Encounter for gynecological examination without abnormal finding History of PCOS Type 1 diabetes mellitus without complication ([facility]) Ordered: 12/02/2024 [facility] Comment on above: Ordered: 12/02/2024 THINPREP TIS PAP RFX HPV THINPRE P TIS PAP RFX HPV Pathology and Cytology Routine Screening for malignant neoplasm of cervix Ordered: 12/02/2024 [facility] Work Phone: Comment on above: Ordered: 12/02/2024 Thyrotropin [Units/volume] in Serum or Plasma TSH Lab Routine Screening for thyroid disorder Ordered: 12/02/2024 [facility] Comment on above: Ordered: 12/02/2024 Thyroxine (T4) free [Mass/volume] in Serum or Plasma T4, free Lab Routine Screening for thyroid disorder Ordered: 12/02/2024 [facility] Comment on above: Ordered: 12/02/2024 Triiodothyronine (T3 ) Free [Mass/volume] in Serum or Plasma T3, free Lab Routine Screening for thyroid disorder Ordered: 12/02/2024 [facility] Comment on above: Ordered: 12/02/2024 End: 10-03-2020 Varicella Zoster Antibody, IgG Varicella Zoster Antibody, IgG Lab Routine Once for 1 Occurrences starting 10/03/2020 until 10/03/2020 [place] Comment on above: Once for 1 Occurrences starting 10/03/20 20 until 10/03/2020 Varicella Zoster Antibody, IgG Varicella Zoster Antibody, IgG Lab Routine 10/03/2020 2:03 PM [place] Immunizations Immunization Date Immunization Notes Care Provider Sofia pineda 08-31-2021 influenza, injectabl e, quadrivalent, contains preservative Adrián LARA Work Phone: [facility] 08-31-2021 influenza virus vacc ine, unspecified formulation Odell Lyman MD Work Phone: [facility] 04-03-2021 Human Papillomavirus 9-valent vaccine [facility] Work Phone: [facility] 12-05-2020 Human Papillomavirus 9-valent vaccine [facility] Work Phone: [facility] 09-29-2020 Human Papillomavirus 9-valent vaccine [facility] Work Phone: [facility] 09-28-2019 influenza, injectabl e, quadrivalent, preservative free [facility] Work Phone: [facility] 08-31-2018 influenza, injectabl e, quadrivalent, contains preservative [facility] Work Phone: [facility] 09-04-2016 meningococcal polysaccharide (groups A, C, Y and W-135) diphtheria toxoid conjugate vaccine (MCV4P) [facility] Work Phone: [facility] 10-09-2015 influenza, injectabl e, quadrivalent, preservative free [facility] Work Phone: [facility] 11-08-2011 influenza, seasonal, injectable [facility] Work Phone: [facility] 07-01-2011 meningococcal polysaccharide (groups A, C, Y and W-135) diphtheria toxoid conjugate vaccine (MCV4P) [facility] Work Phone: [facility] 07-01-2011 tetanus toxoid, redu megan diphtheria toxoid, and acellular pertussis vaccine, adsorbed [facility] Work Phone: [facility] 10-04-2009 novel influenza-H1N1 -09, preservative-free, injectable [facility] Work Phone: [facility] 09-14-2009 influenza, seasonal, injectable [facility] Work Phone: [facility] 05-04-2009 pneumococcal polysaccharide vaccine, 23 valent [facility] Work Phone: [facility] 05-04-2009 varicella virus vaccine Kinza Wakefield PA Work Phone: [facility] 10-08-2007 influenza virus vacc ine, whole virus [facility] 03-28-2004 diphtheria, tetanus toxoids and acellular pertussis vaccine [facility] 03-28-2004 measles, mumps and rubella virus vaccine Adrián [facility] PA Work Phone: [facility] 03-28-2004 poliovirus vaccine, inactivated [facility] 04-17-2000 diphtheria, tetanus toxoids and acellular pertussis vaccine, unspecified formulation [facility] Work [facility]: [facility] 04-17-2000 haemophilus influenz ae type b vaccine, PRP-T conjugate Adri[facility] Work Phone: [facility] 04-07-2000 diphtheria, tetanus toxoids and acellular pertussis vaccine [facility]: [facility] 03-13-2000 measles, mumps and rubella virus vaccine [facility] Work [facility]: [facility] 03-13-2000 poliovirus vaccine, unspecified formulation [facility] Work [facility]: [facility] 03-13-2000 varicella virus vaccine [facility] PA Work Phone: [facility] 03-03-2000 poliovirus vaccine, inactivated [facility] Work Phone: [facility] 03-03-2000 varicella virus vaccine Kinza Gil PA Work Phone: [facility] 1999 hepatitis B vaccine, pediatric or pediatric/adolescent dosage [facility] Work [facility]: [facility] 1999 diphtheria, tetanus toxoids and acellular pertussis vaccine [facility] Work Phone: [facility] 1999 haemophilus influenz ae type b vaccine, PRP-T conjugate Adrián [facility] Work Phone: [facility] 1999 diphtheria, tetanus toxoids and acellular pertussis vaccine [facility] Work Phone: [facility] 1999 haemophilus influenz ae type b vaccine, PRP-T conjugate Adrián [facility] Work Phone: [facility] 1999 poliovirus vaccine, inactivated [facility] Work Phone: [facility] 1999 poliovirus vaccine, inactivated [facility] Work Phone: [facility] 1999 DTaP-Haemophilus influenzae type b conjugate vaccine Adrián [facility] Work Phone: [facility] 1999 DTP-Haemophilus influenzae type b conjugate vaccine Adrián [facility] Work Phone: [facility] 1999 hepatitis B vaccine, pediatric or pediatric/adolescent dosage [facility] Work Phone: [facility] 1999 hepatitis B vaccine, pediatric or pediatric/adolescent dosage [facility] Work [facility] Payers Date Payer Category Payer Unknown [id number] [address] [facility] er [id number] 2022 Private Health Insurance [employer] [id number] 2022 Unknown [id number] 2022 Unknown [id number] 2020 Unknown 2020 Unknown [employer] [id number] 2020-Present Indemnity [id number] 1999 Unknown [id number] 173 1999 Unknown [id number] 196 1999 Unknown [id number]. 1259 1999 Unknown [id number] 1259 1999 Unknown [id number] 1259 1999 Unknown [id number] 1259 1999 Unknown [id number] 1259 1999 Unknown [id number]. 1259 1999 Unknown [id number] 727 1999 Unknown [id number] 727 1999 Unknown [id number] 727 Social History Date Type Detail Facility Start: 09-17-2019 End: 06-28-2024 Tobacco smoking status NHIS Never smoker [facility] [place] Start: 09-17-2019 End: 05-02-2023 [facility] [place] [place] Start: 09-17-2019 Alcohol intake Current non-drinker of alcohol (finding) [place], [place] Start: 1999 Sex Assigned At Not on file [place] Tobacco smoking stat [facility] Tobacco smoking consumption unknown [facility] Start: 06-17-2024 End: 07-05-2024 Gender identity Not on file [facility] Start: 06-17-2024 Alcohol intake Not Asked [facility] Start: 06-17-2024 End: 07-05-2024 History of Social function [facility] National Score (1-10 0), lower number is lower risk 60 [facility] Start: 06-17-2024 Alcohol Comment socially, 1 drink a week on average [facility] Start: 1999 Sex Assigned At Female [facility] Start: 08-25-2024 End: 12-02-2024 Alcoholic beverage intake Current drinker of alcohol (finding) [facility] Do you belong to any clubs or organizations such as moravian groups, unions, fraternal or athletic groups, or school groups? No [facility] Are you now , , , , never or living with a partner? [facility] How often to you hav e a drink containing alcohol? Monthly or less [facility] How many standard dr inks containing alcohol do you have on a typical day? 1 or 2 [facility] How often do you hav e 6 or more drinks on 1 occasion? Never [facility] Do you feel stress - tense, restless, nervous, or anxious, or unable to sleep at night because your mind is troubled all the time - these days [OSQ] Only a little [facility] (I/We) worried wheth er (my/our) food would run out before (I/we) got money to buy more. Never true [facility] Start: 05-02-2023 Alcohol Comment 1-2 drinks every 2-4 times a month. [facility] Start: 01-24-2025 End: 02-08-2025 Sex Female (finding) [facility] Medical Equipment Procedure Code Equipment Code Equipment Origin al Text Equipment Identifier Dates Sig: ketone test ing daily prn for ketones [id number] Start: 07-14-2013 For testing 6 or more times a day for meter that communicates with the pump [id number] Start: 07-08-2013 Disp: #600 Sig: For blood testing 4-6 times/day 90 day supply [id number] Start: 07-01-2012 Sig: For blood t esting 4-6 times/day [id number] Start: 03-10-2013 Injection subcut aneous daily [id number] Start: 03-24-2024 Functional Status Date Assessment Result Facility 01-07-2025 Functional Status N/A [facility] 10-29-2024 Functional Status N/A [facility] Clinical Notes 10-17-2023 to 01-24-2025 Note Date & Type Note Facility 01-24-2025 Evaluation note Diagnosis Onset Date Resolution Anxiety acute January 24, 2025 2:53pm Maxillary sinusitis acute Febru amelia 2024 2:53pm [facility] Work Phone: 1(147) 644-415102-10-2025 NoteMicrobiology PROCEDURE: Strep Screen Culture [R1] SOURCE: Throat BODY SITE: COLLECTED DATE/TIME: 01/07/2025 18:13 EST RECEIVED DATE/TIME: 01/08/2025 12:55 EST START DATE/TIME: 01/08/2025 12:55 EST FREE TEXT SOURCE: Melody John Elizabeth L FINAL REPORTS Final Report [] Verified Date/Time: 01/10/2025 10:30 EST Streptococcus Group A screen negative Performing Locations R1: This test was performed at: [facility], [address] [place] [address], [id number] [place] [address], SbsdqfUniversity [facility] CenterComment on above:Performed By: #### [id number] #### [facility] [address] [place] [address] [id number] NoteMicrobiology PROCEDURE: Strep Screen Culture [R1] SOURCE: Throat BODY SITE: COLLECTED DATE/TIME: 01/07/2025 18:13 EST RECEIVED DATE/TIME: 01/08/2025 12:55 EST START DATE/TIME: 01/08/2025 12:55 EST FREE TEXT SOURCE: Melody John Elizabeth L FINAL REPORTS Final Report [] Verified Date/Time: 01/10/2025 10:30 EST Streptococcus Group A screen negative Performing Locations R1: This test was performed at: [facility], [address] [place] [address], [id number] [place] [address], [id number]Comment on above:Performed By: #### [id number] #### [facility] [address] [place] [address] [id number] Hospital Discharge instructions Patient Education 01/07/2025 16:45:01 Pharyngitis Pharyngitis Pharyngitis is inflammation of the throat (pharynx). It is a very common cause of sore throat. Pharyngitis can be caused by a bacteria, but it is usually caused by a virus. Most cases of pharyngitis get better on their own without treatment. What are the causes? This condition may be caused by: Infection by viruses (viral). Viral pharyngitis spreads easily from person to person (is contagious) through coughing, sneezing, and sharing of personal items or utensils such as cups, forks, spoons,and toothbrushes. Infection by bacteria (bacterial). Bacterial pharyngitis may be spread by touching the nose or faceafter coming in contact with the bacteria, or through close contact, such as kissing. Allergies. Allergies can cause buildup of mucus in the throat (post-nasal drip), leading to inflammation and irritation. Allergies can also cause blocked nasal passages, forcing breathing through themouth, which dries and irritates the throat. What increases the risk? You are more likely to develop this condition if: You are 5 24 years old. You are exposed to crowded environments such as daycare, school, or dormitory living. You live in a cold climate. You have a weakened disease-fighting (immune) system. What are the signs or symptoms? Symptoms of this condition vary by the cause. Common symptoms of this condition include: Sore throat. Fatigue. Low-grade fever. Stuffy nose (nasal congestion) and cough. Headache. Other symptoms may include: Glands in the neck (lymph nodes) that are swollen. Skin rashes. Plaque-like film on the throat or tonsils. This is often a symptom of bacterial pharyngitis. Vomiting. Red, itchy eyes (conjunctivitis). Loss of appetite. Joint pain and muscle aches. Enlarged tonsils. How is this diagnosed? This condition may be diagnosed based on your medical history and a physical exam. Your health careprovider will ask you questions about your illness and your symptoms. A swab of your throat may be done to check for bacteria (rapid strep test). Other lab tests may also be done, depending on the suspected cause, but these are rare. How is this treated? Many times, treatment is not needed for this condition. Pharyngitis usually gets better in 3 4 dayswithout treatment. Bacterial pharyngitis may be treated with antibiotic medicines. Follow these instructions at home: Medicines Take xwuy-flq-aojsock and prescription medicines only as told by your health care provider. If you were prescribed an antibiotic medicine, take it as told by your health care provider. Do notstop taking the antibiotic even if you start to feel better. Use throat sprays to soothe your throat as told by your health care provider. Children can get pharyngitis. Do not give your child aspirin because of the association with Haroldo'ssyndrome. Managing pain To help with pain, try: Sipping warm liquids, such as broth, herbal tea, or warm water. Eating or drinking cold or frozen liquids, such as frozen ice pops. Gargling with a mixture of salt and water 3 4 times a day or as needed. To make salt water, completely dissolve 1 tsp (3 6 g) of salt in 1 cup (237 mL) of warm water. Sucking on hard candy or throat lozenges. Putting a cool-mist humidifier in your bedroom at night to moisten the air. Sitting in the bathroom with the door closed for 5 10 minutes while you run hot water in the shower. General instructions Do not use any products that contain nicotine or tobacco. These products include cigarettes, chewing tobacco, and vaping devices, such as e-cigarettes. If you need help quitting, ask your health careprovider. Rest as told by your health care provider. Drink enough fluid to keep your urine pale yellow. How is this prevented? To help prevent becoming infected or spreading infection: Wash your hands often with soap and water for at least 20 seconds. If soap and water are not available, use hand vice president of marketing. Do not touch your eyes, nose, or mouth with unwashed hands, and wash hands after touching these areas. Do not share cups or eating utensils. Avoid close contact with people who are sick. Contact a health care provider if: You have large, tender lumps in your neck. You have a rash. You cough up green, yellow-brown, or bloody mucus. Get help right away if: Your neck becomes stiff. You drool or are unable to swallow liquids. You cannot drink or take medicines without vomiting. You have severe pain that does not go away, even after you take medicine. You have trouble breathing, and it is not caused by a stuffy nose. You have new pain and swelling in your joints such as the knees, ankles, wrists, or elbows. These symptoms may represent a serious problem that is an emergency. Do not wait to see if the symptoms will go away. Get medical help right away. Call your local emergency services (911 in the [place] Do not drive yourself to the hospital. Summary Pharyngitis is redness, pain, and swelling (inflammation) of the throat (pharynx). While pharyngitis can be caused by a bacteria, the most common causes are viral. Most cases of pharyngitis get better on their own without treatment. Bacterial pharyngitis is treated with antibiotic medicines. This information is not intended to replace advice given to you by your health care provider. Make sure you discuss any questions you have with your health care provider. Document Revised: 02/13/2022 Document Reviewed: 02/13/2022 [employer] Patient Education 2023 [employer]. 01/07/2025 16:44:59 Nausea and Vomiting, Adult Nausea and Vomiting, Adult Nausea is the feeling that you have an upset stomach or that you are about to vomit. As nausea getsworse, it can lead to vomiting. Vomiting is when stomach contents forcefully come out of your mouthas a result of nausea. Vomiting can make you feel weak and cause you to become dehydrated. Dehydration can make you feel tired and thirsty, cause you to have a dry mouth, and decrease how often you urinate. Older adults and people with other diseases or a weak disease-fighting system (immune system) are at higher risk for dehydration. It is important to treat your nausea and vomiting as told by your health care provider. Follow these instructions at home: Watch your symptoms for any changes. Tell your health care provider about them. Eating and drinking Take an oral rehydration solution (ORS). This is a drink that is sold at pharmacies and retail stores. Drink clear fluids slowly and in small amounts as you are able. Clear fluids include water, ice chips, low-calorie sports drinks, and fruit juice that has water added (diluted fruit juice). Eat bland, wurc-ds-[id number] foods in small amounts as you are able. These foods include bananas, applesauce, rice, lean meats, toast, and crackers. Avoid fluids that contain a lot of sugar or caffeine, such as energy drinks, sports drinks, and soda. Avoid alcohol. Avoid spicy or fatty foods. General instructions Take isyd-klv-opltzir and prescription medicines only as told by your health care provider. Drink enough fluid to keep your urine pale yellow. Wash your hands often using soap and water for at least 20 seconds. If soap and water are not available, use hand vice president of marketing. Make sure that everyone in your household washes their hands well and often. Rest at home while you recover. Watch your condition for any changes. Take slow and deep breaths when you feel nauseous. Keep all follow-up visits. This is important. Contact a health care provider if: Your symptoms get worse. You have new symptoms. You have a fever. You cannot drink fluids without vomiting. Your nausea does not go away after 2 days. You feel light-headed or dizzy. You have a headache. You have muscle cramps. You have a rash. You have pain while urinating. Get help right away if: You have pain in your chest, neck, arm, or jaw. You feel extremely weak or you faint. You have persistent vomiting. You have vomit that is bright red or looks like black coffee grounds. You have bloody or black stools (feces) or stools that look like tar. You have a severe headache, a stiff neck, or both. You have severe pain, cramping, or bloating in your abdomen. You have difficulty breathing, or you are breathing very quickly. Your heart is beating very quickly. Your skin feels cold and clammy. You feel confused. You have signs of dehydration, such as: ?Dark urine, very little urine, or no urine. ?Cracked lips. ?Dry mouth. ?Sunken eyes. ?Sleepiness. ?Weakness. These symptoms may be an emergency. Get help right away. Call 911. Do not wait to see if the symptoms will go away. Do not drive yourself to the hospital. Summary Nausea is the feeling that you have an upset stomach or that you are about to vomit. As nausea getsworse, it can lead to vomiting. Vomiting can make you feel weak and cause you to become dehydrated. Follow instructions from your health care provider about eating and drinking to prevent dehydration. Take vluw-yag-muvbqyz and prescription medicines only as told by your health care provider. Contact your health care provider if your symptoms get worse, or you have new symptoms. Keep all follow-up visits. This is important. This information is not intended to replace advice given to you by your health care provider. Make sure you discuss any questions you have with your health care provider. Document Revised: 05/24/2022 Document Reviewed: 05/24/2022 [employer] Patient Education 2023 Imperator. Follow Up Care 01/07/2025 09:30:58 With:YOUR PCP Address: When: Unknown [facility] 02-07-2025 NotePatient Education Gastroenterology Nausea and Vomiting, Adult Nausea is the feeling that you have an upset stomach or that you are about to vomit. As nausea getsworse, it can lead to vomiting. Vomiting is when stomach contents forcefully come out of your mouthas a result of nausea. Vomiting can make you feel weak and cause you to become dehydrated. Dehydration can make you feel tired and thirsty, cause you to have a dry mouth, and decrease how often you urinate. Older adults and people with other diseases or a weak disease-fighting system (immune system) are at higher risk for dehydration. It is important to treat your nausea and vomiting as told by your health care provider. Follow these instructions at home: Watch your symptoms for any changes. Tell your health care provider about them. Eating and drinking ??? Take an oral rehydration solution (ORS). This is a drink that is sold at pharmacies and retail stores. ??? Drink clear fluids slowly and in small amounts as you are able. Clear fluids include water, icechips, low-calorie sports drinks, and fruit juice that has water added (diluted fruit juice). ??? Eat bland, lyte-ja-rxedds foods in small amounts as you are able. These foods include bananas, applesauce, rice, lean meats, toast, and crackers. ??? Avoid fluids that contain a lot of sugar or caffeine, such as energy drinks, sports drinks, andsoda. ??? Avoid alcohol. ??? Avoid spicy or fatty foods. General instructions ??? Take cmzc-ssw-qeybkvs and prescription medicines only as told by your health care provider. ??? Drink enough fluid to keep your urine pale yellow. ??? Wash your hands often using soap and water for at least 20 seconds. If soap and water are not available, use hand vice president of marketing. ??? Make sure that everyone in your household washes their hands well and often. ??? Rest at home while you recover. ??? Watch your condition for any changes. ??? Take slow and deep breaths when you feel nauseous. ??? Keep all follow-up visits. This is important. Contact a health care provider if: ??? Your symptoms get worse. ??? You have new symptoms. ??? You have a fever. ??? You cannot drink fluids without vomiting. ??? Your nausea does not go away after 2 days. ??? You feel light-headed or dizzy. ??? You have a headache. ??? You have muscle cramps. ??? You have a rash. ??? You have pain while urinating. Get help right away if: ??? You have pain in your chest, neck, arm, or jaw. ??? You feel extremely weak or you faint. ??? You have persistent vomiting. ??? You have vomit that is bright red or looks like black coffee grounds. ??? You have bloody or black stools (feces) or stools that look like tar. ??? You have a severe headache, a stiff neck, or both. ??? You have severe pain, cramping, or bloating in your abdomen. ??? You have difficulty breathing, or you are breathing very quickly. ??? Your heart is beating very quickly. ??? Your skin feels cold and clammy. ??? You feel confused. ??? You have signs of dehydration, such as: ? Dark urine, very little urine, or no urine. ? Cracked lips. ? Dry mouth. ? Sunken eyes. ? Sleepiness. ? Weakness. These symptoms may be an emergency. Get help right away. Call 911. ??? Do not wait to see if the symptoms will go away. ??? Do not drive yourself to the hospital. Summary ??? Nausea is the feeling that you have an upset stomach or that you are about to vomit. As nausea gets worse, it can lead to vomiting. Vomiting can make you feel weak and cause you to become dehydrated. ??? Follow instructions from your health care provider about eating and drinking to prevent dehydration. ??? Take npwy-uel-nagiiqc and prescription medicines only as told by your health care provider. ??? Contact your health care provider if your symptoms get worse, or you have new symptoms. ??? Keep all follow-up visits. This is important. This information is not intended to replace advice given to you by your health care provider. Make sure you discuss any questions you have with your health care provider. Document Revised: 05/24/2022 Document Reviewed: 05/24/2022 [employer] Patient Education ? 2023 Imperator. Infectious Disease Pharyngitis Pharyngitis is inflammation of the throat (pharynx). It is a very common cause of sore throat. Pharyngitis can be caused by a bacteria, but it is usually caused by a virus. Most cases of pharyngitis get better on their own without treatment. What are the causes? This condition may be caused by: ??? Infection by viruses (viral). Viral pharyngitis spreads easily from person to person (is contagious) through coughing, sneezing, and sharing of personal items or utensils such as cups, forks, spoons, and toothbrushes. ??? Infection by bacteria (bacterial). Bacterial pharyngitis may be spread by touching the nose or face a (more content not included)...[facility]02-07-2025 Evaluation + Plan note Diagnostic Tests Pending * Strep Screen Culture 01/07/25 [facility] 01-02-2025 History of Present illness Narrative* Manda Guerrero DO - 12/02/2024 10:45 AM EST Images from the original note were not included. Manda Guerrero DO Obstetrics and Gynecology Name: Clinton Barba Date/Time of Service:12/02/2024 11:49 AM :2000 Age: 24 y.o. Subjective Clinton Barba is a 24 y.o. female who is here for a routine exam. Gynecologic Exam (Patient here for yearly. Patient requesting a hormonal panel; cortisol and thyroid. Patient has periods every month lasting 4 days with normal bleeding and mild cramping. LMP 11/29/24 Has not been on birthcontrol in over a year. Would like to conceive this year. Currently sexuallyactive. Declines STD testing. ) Control Contraception: none. LMP: Patient's last menstrual period was 11/29/2024. Last Mammogram No results found for this or any previous visit. Current Outpatient Medications on File Prior to Visit Medication Sig Dispense Refill Continuous Blood Gluc Sensor (Dexcom G7 Sensor) misc Inject 1 Device under the skin See administration instructions Change every 10 days 9 each 3 glucagon (Baqsimi Two Pack) 3 MG/DOSE nasal powder Administer 3 mg into affected nostril(s) 1 (one)time if needed for low blood sugar. 1 each 1 insulin aspart (NovoLOG) 100 UNIT/ML injection Per pump (max daily 80 units) 80 mL 3 insulin glargine (Lantus SoloStar) 100 UNIT/ML pen Inject 34 Units under the skin at bedtime 15 mL 1 Insulin Infusion Pump (T:slim Insulin Delivery System) device Basal: 12A 1.45, 1P 1.35, 5P 1.6, ICR: 12A 5, 11A 6, ISF: 75, target: 110 1 each 0 Insulin Syringe 31G X 5/16 0.3 ML misc Injection subcutaneous daily 100 each 3 No current facility-administered medications on file prior to visit. Past Medical History: Diagnosis Date IBS (irritable bowel syndrome) Type 1 diabetes mellitus without complication (CMS/[facility]) Past Surgical History: Procedure Laterality Date TONSILLECTOMY 2010 WISDOM TOOTH EXTRACTION Family History Problem Relation Name Age of Onset No Known Problems Mother No Known Problems Father Heart disease Maternal Grandmother Heart disease Maternal Grandfather Breast cancer Paternal Grandmother Lung cancer Paternal Grandmother Stroke Paternal Grandmother Social History Tobacco Use Smoking status: Never Smokeless tobacco: Never Substance Use Topics Alcohol use: Yes Comment: 1-2 drinks every 2-4 times a month. Drug use: Never OB History Para Term AB Living 0 0 0 0 0 0 SAB IAB Ectopic Multiple Live Births 0 0 0 0 0 No Known Allergies Review of Systems Constitutional: Negative. Respiratory: Negative. Cardiovascular: Negative. Gastrointestinal: Negative. Musculoskeletal: Negative. Skin: Negative. Neurological: Negative. Endocrine: Negative. Objective BP 116/74 Wt 185 lb LMP 11/29/2024 BMI 31.76 kg/m Body mass index is 31.76 kg/m . Physical Exam Genitourinary: Urethral meatus normal. No lesions in the vagina. Right Labia: No lesions. Left Labia: No lesions. Vaginal bleeding (minimal dark red blood in vault) present. No vaginal discharge. Right Adnexa: not tender and no mass present. Left Adnexa: not tender and no mass present. No cervical lesion. Uterus is not tender. Uterus is anteverted. Bladder is not tender. Breasts: Right: No mass, nipple discharge, skin change or tenderness. Left: No mass, nipple discharge, skin change or tenderness. HENT: Head: Normocephalic and atraumatic. Mouth/Throat: Mouth: Mucous membranes are moist. Cardiovascular: Rate and Rhythm: Normal rate and regular rhythm. Pulmonary: Effort: Pulmonary effort is normal. Breath sounds: Normal breath sounds. Abdominal: General: Bowel sounds are normal. Palpations: Abdomen is soft. Musculoskeletal: General: No tenderness. Cervical back: Neck supple. Neurological: Mental Status: She is alert and oriented to person, place, and time. Skin: General: Skin is warm and dry. Psychiatric: Mood and Affect: Mood normal. Vitals and nursing note reviewed. Assessment/Plan 1. Encounter for gynecological examination without abnormal finding (Primary) Breast and pelvic exam performed. Discussed findings. Patient to contact the office with any changes to her gynecological condition. - Cortisol - Estrone - Progesterone - Luteinizing hormone - Prolactin - Testosterone, free, total 2. Screening for malignant neoplasm of cervix Cervical cytology performed. Patient to contact the office for results - THINPREP TIS PAP RFX HPV 3. Family planning Declined any interest in prescribed contraception at this time. Recommended patient to start vitamin prior to trying to conceive 4. Screening for thyroid disorder Will assess TSH, free T3 and free T4 - TSH - T3, free - T4, free 5. History of PCOS Will assess Cortisol, Estrone, progesterone, LH, Prolactin, and testosterone. Will notify patient of results - Cortisol - Estrone - Progesterone - Luteinizing hormone - Prolactin - Testosterone, free, total 6. Type 1 diabetes mellitus without complication (CMS/HCC) Discussed HgbA1c to be 5-6 prior to conceive to reduce risk of complications - Cortisol - Estrone - Progesterone - Luteinizing hormone - Prolactin - Testosterone, free, total ICD-10-CM 1. Encounter for gynecological examination without abnormal finding Z01.419 Cortisol Estrone Progesterone Luteinizing hormone Prolactin Testosterone, free, total 2. Screening for malignant neoplasm of cervix Z12.4 THINPREP TIS PAP RFX HPV 3. Family planning Z30.09 4. Screening for thyroid disorder Z13.29 TSH T3, free T4, free 5. History of PCOS Z87.42 Cortisol Estrone Progesterone Luteinizing hormone Prolactin Testosterone, free, total 6. Type 1 diabetes mellitus without complication (CMS/HCC) E10.9 Cortisol Estrone Progesterone Luteinizing hormone Prolactin Testosterone, free, total Follow up in about 1 year (around 12/02/2025) for Yearly. Manda Guerrero DO 12/02/2024 11:49 AM documented in this encounterChildren's Mercy [id number] History of Present illness Narrative* My Saenz DO - 11/22/2024 12:34 PM ESTAssociated Problem(s): Type 1 diabetes mellitus without complication (CMS/HCC) During the appointment today all pertinent labs, imaging, health maintenance, and glucose readings were reviewed. Encouraged to check blood glucose throughout the day with some fasting and some PP readings. They are to bring their glucose meter/cgm in to all appointments. All of the patients questions, treatment options, and current care plan and goals were discussed. Acopy of this along with pertinent instructions were given to the patient at the end of the appointment. The patient voices understanding of all of this and is to call in between appointments if they have any problems or questions. Clinton Barba control is stable overall. , The patient is wearing their cgm on a daily basis and making decisions in regards to adjusting insulin daily as well for at least the last 60 days , Instructions given today include: Pump instructions and Dietary education. Will increase her basal rate at12A and tighten carb ratio for breakfast. * My Saenz DO - 11/22/2024 10:15 AM EST Images from the original note were not included. Clinton Babra is a 24 y.o. female presents with chief complaint of Diabetes HPI: Diabetes Mellitus Follow-up: Clinton Barba is here for follow-up evaluation of diabetes mellitus. The initial diagnosis of diabetes was made in Diabetes complications: none She has been checking her blood glucose with a tandem pump -LINKED IN [place]ANDEM- and Dexcom G7 CGM daily. She is spiking after breakfast frequently. Will rise some overnight as well. Inconsistent spikeswith lunch/dinner. Last A1c: 7.1 on 06/17/2024 Last eye exam: 03/15/2024 Current concerns include: Last office visit was on 08/20/2024 Having trouble with infusion sets failing. Either they are kinking or something else. Fail on her abdomen the most. She is rotating sites. Has not had a sensor since Friday and has been doing finger sticks. New order ships tomorrow. States bg levels are improving overall Diet: counting carbs Drinks: water, coffee with almond milk, occasional diet pop Exercise: 5 days lifting and walking Hypoglycemia: once a week after exercise SUBJECTIVE: PROBLEM LIST SOCIAL ALLERGIES: Patient Active Problem List Diagnosis Type 1 diabetes mellitus without complication ([facility]) Left wrist tendonitis Enthesopathy Social History Tobacco Use Smoking status: Never Smokeless tobacco: Never Substance Use Topics Alcohol use: Yes Comment: 1-2 drinks every 2-4 times a month. Drug use: Never No Known Allergies Synopsis SmartLink 11/22/2024 10:17 Antidiabetic medications Glucagon 3 mg Once PRN NA Insulin Aspart Per pump (max daily 80 units) (100 UNIT/ML SOLN) Insulin Glargine 34 Units Nightly SC Labs MHPT A1C 7.8 Outpatient prescription Medication marked as long-term The ASCVD Risk score (Shirin DK, et al., 2019) failed to calculate for the following reasons: The 2019 ASCVD risk score is only valid for ages 40 to 79 REVIEW OF SYMPTOMS: Review of Systems Constitutional: Negative for appetite change, fatigue and unexpected weight change. Eyes: Negative for visual disturbance. Respiratory: Negative for cough, shortness of breath and wheezing. Cardiovascular: Negative for chest pain, palpitations and leg swelling. Neurological: Negative for numbness. Endocrine: Negative for polydipsia, polyphagia and polyuria. OBJECTIVE: 11/22/2024 10:04 AM 07/06/2024 2:46 PM 01/19/2024 9:37 AM Vitals BMI 31.58 kg/m2 29.7 kg/m2 30.21 kg/m2 Systolic 108 102 112 Diastolic 62 60 66 Heart Rate 85 91 76 Temp 98.3 F 98.6 F 98.1 F Height (in) 5' 4 5' 4 5' 4 Weight (lb) 184 173 176 Visit Report Report Report Report Physical Exam Constitutional: General: She is not in acute distress. Appearance: Normal appearance. Cardiovascular: Rate and Rhythm: Normal rate and regular rhythm. Heart sounds: No murmur heard. No friction rub. No gallop. Pulmonary: Breath sounds: Normal breath sounds. No wheezing, rhonchi or rales. Musculoskeletal: General: No swelling. Neurological: Mental Status: She is alert. ASSESSMENT AND PLAN: Problem List Items Addressed This Visit Type 1 diabetes mellitus without complication (CMS/HCC) During the appointment today all pertinent labs, imaging, health maintenance, and glucose readings were reviewed. Encouraged to check blood glucose throughout the day with some fasting and some PP readings. They are to bring their glucose meter/cgm in to all appointments. All of the patients questions, treatment options, and current care plan and goals were discussed. Acopy of this along with pertinent instructions were given to the patient at the end of the appointment. The patient voices understanding of all of this and is to call in between appointments if they have any problems or questions. Clinton Barba control is stable overall. , The patient is wearing their cgm on a daily basis and making decisions in regards to adjusting insulin daily as well for at least the last 60 days , Instructions given today include: Pump instructions and Dietary education. Will increase her basal rate at12A and tighten carb ratio for breakfast. Relevant Medications Insulin Infusion Pump (T:slim Insulin Delivery System) device Other Relevant Orders POCT glycosylated hemoglobin (Hb A1C) docked device (Completed) Follow up in about 4 months (around 03/23/2025) for Recheck. Patient's Medications New Prescriptions No medications on file Previous Medications CONTINUOUS BLOOD GLUC SENSOR (DEXCOM G7 SENSOR) MISC Inject 1 Device under the skin See administration instructions Change every 10 days GLUCAGON (BAQSIMI TWO PACK) 3 MG/DOSE NASAL POWDER Administer 3 mg into affected nostril(s) 1 (one)time if needed for low blood sugar. INSULIN ASPART (NOVOLOG) 100 UNIT/ML INJECTION Per pump (max daily 80 units) INSULIN GLARGINE (LANTUS SOLOSTAR) 100 UNIT/ML PEN Inject 34 Units under the skin at bedtime INSULIN SYRINGE 31G X 5/16 0.3 ML MISC Injection subcutaneous daily Modified Medications Modified Medication Previous Medication INSULIN INFUSION PUMP (T:SLIM INSULIN DELIVERY SYSTEM) DEVICE Insulin Infusion Pump (T:slim InsulinDelivery System) device Basal: 12A 1.45, 1P 1.35, 5P 1.6, ICR: 12A 5, 11A 6, ISF: 75, target: 110 Basal: 12A 1.35, 8A 1.45,1P 1.3, 5P 1.6, ICR: 12A 6, ISF: 75, target: 110 Discontinued Medications BUSPIRONE (BUSPAR) 5 MG TABLET Take 5 mg by mouth Daily I have reviewed and reconciled the history and medication list with the patient today. documented in this encounterChildren's Mercy [id number] Hospital Discharge instructions Patient Education 10/29/2024 11:24:34 Sinus Infection, Adult Sinus Infection, Adult A sinus infection, also called sinusitis, is inflammation of your sinuses. Sinuses are hollow spaces in the bones around your face. Your sinuses are located: Around your eyes. In the middle of your forehead. Behind your nose. In your cheekbones. Mucus normally drains out of your sinuses. When your nasal tissues become inflamed or swollen, mucus can become trapped or blocked. This allows bacteria, viruses, and fungi to grow, which leads to infection. Most infections of the sinuses are caused by a virus. A sinus infection can develop quickly. It can last for up to 4 weeks (acute) or for more than 12 weeks (chronic). A sinus infection often develops after a cold. What are the causes? This condition is caused by anything that creates swelling in the sinuses or stops mucus from draining. This includes: Allergies. Asthma. Infection from bacteria or viruses. Deformities or blockages in your nose or sinuses. Abnormal growths in the nose (nasal polyps). Pollutants, such as chemicals or irritants in the air. Infection from fungi. This is rare. What increases the risk? You are more likely to develop this condition if you: Have a weak body defense system (immune system). Do a lot of swimming or diving. Overuse nasal sprays. Smoke. What are the signs or symptoms? The main symptoms of this condition are pain and a feeling of pressure around the affected sinuses.Other symptoms include: Stuffy nose or congestion that makes it difficult to breathe through your nose. Thick yellow or greenish drainage from your nose. Tenderness, swelling, and warmth over the affected sinuses. A cough that may get worse at night. Decreased sense of smell and taste. Extra mucus that collects in the throat or the back of the nose (postnasal drip) causing a sore throat or bad breath. Tiredness (fatigue). Fever. How is this diagnosed? This condition is diagnosed based on: Your symptoms. Your medical history. A physical exam. Tests to find out if your condition is acute or chronic. This may include: ?Checking your nose for nasal polyps. ?Viewing your sinuses using a device that has a light (endoscope). ?Testing for allergies or bacteria. ?Imaging tests, such as an MRI or CT scan. In rare cases, a bone biopsy may be done to rule out more serious types of fungal sinus disease. How is this treated? Treatment for a sinus infection depends on the cause and whether your condition is chronic or acute. If caused by a virus, your symptoms should go away on their own within 10 days. You may be given medicines to relieve symptoms. They include: ?Medicines that shrink swollen nasal passages (decongestants). ?A spray that eases inflammation of the nostrils (topical intranasal corticosteroids). ?Rinses that help get rid of thick mucus in your nose (nasal saline washes). ?Medicines that treat allergies (antihistamines). ?Cnsk-azg-nlvbrmm pain relievers. If caused by bacteria, your health care provider may recommend waiting to see if your symptoms improve. Most bacterial infections will get better without antibiotic medicine. You may be given antibiotics if you have: ?A severe infection. ?A weak immune system. If caused by narrow nasal passages or nasal polyps, surgery may be needed. Follow these instructions at home: Medicines Take, use, or apply lncd-urv-sgurnnq and prescription medicines only as told by your health care provider. These may include nasal sprays. If you were prescribed an antibiotic medicine, take it as told by your health care provider. Do notstop taking the antibiotic even if you start to feel better. Hydrate and humidify Drink enough fluid to keep your urine pale yellow. Staying hydrated will help to thin your mucus. Use a cool mist humidifier to keep the humidity level in your home above 50%. Inhale steam for 10 15 minutes, 3 4 times a day, or as told by your health care provider. You can do this in the bathroom while a hot shower is running. Limit your exposure to cool or dry air. Rest Rest as much as possible. Sleep with your head raised (elevated). Make sure you get enough sleep each night. General instructions Apply a warm, moist washcloth to your face 3 4 times a day or as told by your health care provider.This will help with discomfort. Use nasal saline washes as often as told by your health care provider. Wash your hands often with soap and water to reduce your exposure to germs. If soap and water are not available, use hand vice president of marketing. Do not smoke. Avoid being around people who are smoking (secondhand smoke). Keep all follow-up visits. This is important. Contact a health care provider if: You have a fever. Your symptoms get worse. Your symptoms do not improve within 10 days. Get help right away if: You have a severe headache. You have persistent vomiting. You have severe pain or swelling around your face or eyes. You have vision problems. You develop confusion. Your neck is stiff. You have trouble breathing. These symptoms may be an emergency. Get help right away. Call 911. Do not wait to see if the symptoms will go away. Do not drive yourself to the hospital. Summary A sinus infection is soreness and inflammation of your sinuses. Sinuses are hollow spaces in the bones around your face. This condition is caused by nasal tissues that become inflamed or swollen. The swelling traps or blocks the flow of mucus. This allows bacteria, viruses, and fungi to grow, which leads to infection. If you were prescribed an antibiotic medicine, take it as told by your health care provider. Do notstop taking the antibiotic even if you start to feel better. Keep all follow-up visits. This is important. This information is not intended to replace advice given to you by your health care provider. Make sure you discuss any questions you have with your health care provider. Document Revised: 10/22/2022 Document Reviewed: 10/22/2022 [employer] Patient Education 2023 Imperator. Follow Up Care 10/29/2024 10:26:44 With:LILILE IRVIN CNP Address:Unknown When: Unknown [facility] 11-29-2024 NotePatient Education Infectious Disease Sinus Infection, Adult A sinus infection, also called sinusitis, is inflammation of your sinuses. Sinuses are hollow spaces in the bones around your face. Your sinuses are located: ??? Around your eyes. ??? In the middle of your forehead. ??? Behind your nose. ??? In your cheekbones. Mucus normally drains out of your sinuses. When your nasal tissues become inflamed or swollen, mucus can become trapped or blocked. This allows bacteria, viruses, and fungi to grow, which leads to infection. Most infections of the sinuses are caused by a virus. A sinus infection can develop quickly. It can last for up to 4 weeks (acute) or for more than 12 weeks (chronic). A sinus infection often develops after a cold. What are the causes? This condition is caused by anything that creates swelling in the sinuses or stops mucus from draining. This includes: ??? Allergies. ??? Asthma. ??? Infection from bacteria or viruses. ??? Deformities or blockages in your nose or sinuses. ??? Abnormal growths in the nose (nasal polyps). ??? Pollutants, such as chemicals or irritants in the air. ??? Infection from fungi. This is rare. What increases the risk? You are more likely to develop this condition if you: ??? Have a weak body defense system (immune system). ??? Do a lot of swimming or diving. ??? Overuse nasal sprays. ??? Smoke. What are the signs or symptoms? The main symptoms of this condition are pain and a feeling of pressure around the affected sinuses.Other symptoms include: ??? Stuffy nose or congestion that makes it difficult to breathe through your nose. ??? Thick yellow or greenish drainage from your nose. ??? Tenderness, swelling, and warmth over the affected sinuses. ??? A cough that may get worse at night. ??? Decreased sense of smell and taste. ??? Extra mucus that collects in the throat or the back of the nose (postnasal drip) causing a sorethroat or bad breath. ??? Tiredness (fatigue). ??? Fever. How is this diagnosed? This condition is diagnosed based on: ??? Your symptoms. ??? Your medical history. ??? A physical exam. ??? Tests to find out if your condition is acute or chronic. This may include: ? Checking your nose for nasal polyps. ? Viewing your sinuses using a device that has a light (endoscope). ? Testing for allergies or bacteria. ? Imaging tests, such as an MRI or CT scan. In rare cases, a bone biopsy may be done to rule out more serious types of fungal sinus disease. How is this treated? Treatment for a sinus infection depends on the cause and whether your condition is chronic or acute. ??? If caused by a virus, your symptoms should go away on their own within 10 days. You may be given medicines to relieve symptoms. They include: ? Medicines that shrink swollen nasal passages (decongestants). ? A spray that eases inflammation of the nostrils (topical intranasal corticosteroids). ? Rinses that help get rid of thick mucus in your nose (nasal saline washes). ? Medicines that treat allergies (antihistamines). ? Tjte-chm-yveelgz pain relievers. ??? If caused by bacteria, your health care provider may recommend waiting to see if your symptoms improve. Most bacterial infections will get better without antibiotic medicine. You may be given antibiotics if you have: ? A severe infection. ? A weak immune system. ??? If caused by narrow nasal passages or nasal polyps, surgery may be needed. Follow these instructions at home: Medicines ??? Take, use, or apply [id number] and prescription medicines only as told by your health care provider. These may include nasal sprays. ??? If you were prescribed an antibiotic medicine, take it as told by your health care provider. Donot stop taking the antibiotic even if you start to feel better. Hydrate and humidify ??? Drink enough fluid to keep your urine pale yellow. Staying hydrated will help to thin your mucus. ??? Use a cool mist humidifier to keep the humidity level in your home above 50%. ??? Inhale steam for 10?15 minutes, 3?4 times a day, or as told by your health care provider. You can do this in the bathroom while a hot shower is running. ??? Limit your exposure to cool or dry air. Rest ??? Rest as much as possible. ??? Sleep with your head raised (elevated). ??? Make sure you get enough sleep each night. General instructions ??? Apply a warm, moist washcloth to your face 3?4 times a day or as told by your health care provider. This will help with discomfort. ??? Use nasal saline washes as often as told by your health care provider. ??? Wash your hands often with soap and water to reduce your exposure to germs. If soap and water are not available, use hand vice president of marketing. ??? Do not smoke. Avoid being around people who are smoking (secondhand smoke). ??? Keep all follow-up (more content not included)...[facility] 10-25-2024 Telephone encounter Note* Telephone Encounter - Matilda Lagunas - 10/25/2024 2:48 PM EST Requesting cgm order Faxed through [employer] [phone] [id number] Miscellaneous Notes* Telephone Encounter - Matilda Lagunas - 10/25/2024 2:48 PM EST Requesting cgm order Faxed through [employer] and fax [employer] [phone] documented in this encounterChildren[facility] [id number] History of Present illness Narrative* MARCO Whitt - 10/06/2024 3:30 PM EST Follow up Diagnosis: Onychomycosis Location: 10 fingernails Last visit: 08/25/2024 Symptoms: none today Status: clear Treatments tried and failed: Ciclopirox 0.77% gel Current treatment: Lamisil 250 mg once daily x 6 weeks-completed All pertinent medical history, medications, and allergies were reviewed. General Exam: alert, oriented to person, place, and time, normal affect, well appearing Unaccompanied A focused exam completed based on patient reported problems, see below: 1. Onychomycosis (10) Left 2nd Fingernail, Left 3rd Fingernail, Left 4th Fingernail, Left Distal 5th Finger, Left Thumbnail, Right 2nd Fingernail, Right 3rd Fingernail, Right 4th Finger Medial Paronychium, Right 5th Fingernail, Right Thumbnail Subungual hyperkeratosis with nail thickening. Clear today. The patient was informed that onychomycosis is a fungal infection of the nails. This condition can be treated with topical or oral antifungal agents. Patient completed Lamisil 250 mg and will continue ciclopirox gel as needed for recurrence. Follow up as needed if symptoms worsen again. Next Visit: As needed if symptoms worsen or fail to resolve documented in this encounterChildren's Mercy [id number] History of Present illness Narrative* MARCO Whitt - 08/25/2024 4:00 PM EDT Images from the original note were not included. Other Problem: thickening/discoloration nails Location: fingernails Duration: months Modifying Factor: none Severity: mild Treatments tried/failed: Ciclopirox gel Current treatment: none, Patient states that at the end of May she had her nails done and the techused Gel-X tips, patient states that right after she had them done she started noticing discoloration and a thickening in her nail, she did have them removed and seen her PCP and put her on ciclopirox gel for 4 weeks. New patient, referred by Lillie Irvin NP All pertinent medical history, medications, and allergies were reviewed. General Exam: alert , oriented to person, place, and time , normal affect, well appearing Unaccompanied A focused exam completed based on patient reported problems, see below: 1. Onychomycosis (10) Left 2nd Fingernail, Left 3rd Fingernail, Left 4th Fingernail, Left Distal 5th Finger, Left Thumbnail, Right 2nd Fingernail, Right 3rd Fingernail, Right 4th Finger Medial Paronychium, Right 5th Fingernail, Right Thumbnail Subungual hyperkeratosis with nail thickening. The patient was informed that onychomycosis is a fungal infection of the nails. This condition can be treated with topical or oral antifungal agents. Current treatment with Ciclopirox gel is helping but clearing it. Recurrence can occur despite treatment in some cases. The goal is to grow out a normal nail which can take several months to occur. Start Terbinafine 250 mg take once daily for 6 weeks. Patient denies current excessive alcohol intake or liver problems. Avoid alcohol while taking medication. Discontinue medication and notify clinic if generalized itching, yellowing of skin, or abdominal pain develop. Follow up in 6 weeks. Related Medications terbinafine (LamISIL) 250 MG tablet Take 1 tablet (250 mg) by mouth Daily Next Visit: 6 weeks documented in this encounterChildren's Mer[facility] [id number] Telephone encounter Note* Telephone Encounter - Odell Lyman MD - 07/04/2024 2:50 PM EDT I sent a [employer] message with a request for a notification if the message is not read. Lab results June 25, 2024 are scanned to [facility]. Odell Lyman MD, MBA [facility]08-04-2024 Miscellaneous Notes* Telephone Encounter - Odell Lyman MD - 07/04/2024 2:50 PM EDT I sent a [employer] message with a request for a notification if the message is not read. Lab results June 25, 2024 are scanned to [facility]. Odell Lyman MD, MBA documented in [facility]07-31-2024 Telephone encounter Note * Telephone Encounter - Odell Lyman MD - 06/30/2024 1:02 PM EDT Addressed from a different encounter. Odell Lyman MD, MBA [facility]07-31-2024 Miscellaneous Notes* Telephone Encounter - Odell Lyman MD - 06/30/2024 1:02 PM EDT Addressed from a different encounter. Odell Lyman MD, JAGDISH documented in [facility]07-29-2024 Telephone encounter Note * Telephone Encounter - Ying Byrne MA - 06/28/2024 10:06 AM EDT Patient calling to notify her BS have been high ever since the adjustment has been made to her pump. She is asking if anything can be done. BS this morning was 266. She has been running in 200s-300s.She has been changing her site and giving insulin but nothing is changing. Please call patient at [phone]. Ying Byrne [employer]nc Mill Set Up Operator II Endocrinology & Metabolism [facility] F20 & X20 [facility]07-29-2024 Miscellaneous Notes* Telephone Encounter - Ying Byrne MA - 06/28/2024 10:06 AM EDT Patient calling to notify her BS have been high ever since the adjustment has been made to her pump. She is asking if anything can be done. BS this morning was 266. She has been running in 200s-300s.She has been changing her site and giving insulin but nothing is changing. Please call patient at [phone]. Ying Byrne Cnc Mill Set Up Operator II Endocrinology & Metabolism [facility] F20 & X20 documented in [facility] encounterWilson [facility]07-18-2024 Nurse Note* Arely Bradley RN - 06/17/2024 9:03 AM EDT Images from the original note were not included. [facility]07-18-2024 Nurse Note* Arely Bradley RN - 06/17/2024 9:03 AM EDT Images from the original note were not included. documented in this encounterWilson [facility] Hospital07-18-2024 NoteHNO ID: [id number] Author: ODELL LYMAN MD Service: ? Author Type: Physician Type: Progress Notes Filed: 06/17/2024 17:53 Note Text: [facility] Endocrinology Department Today's Visit Information Reason for Visit: Diabetes Visit Type: Initial Consult Type: Self-referral Consultation Chief Complaint: Other CC Other: 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 She has type 1 diabetes treated with insulin pump. She has Tandem T-Slim X2 with control IQ for the past 4 years. Diabetes History Patient age (years) when first diagnosed with Diabetes: 4 Diabetes Type: DM Type 1 Diabetes Related Complications: None known Related Comorbidities: Obesity Nutrition/Diet Summary Patient Current Diet: Counts carbs, Other - Specify Specify Diet: She keeps meal carbs to 20-30 grams per meal and 15 grams per snack, gluten-free Number of Meals per day: Three Number of Snacks per day/week: Per Day - Specify Number of snacks per day - Specify: 2, mid-afternoon and at bedtime. Exercise Summary Patient exercise routine: Exercising, Minimum times per week - Specify, Duration of session in minutes - Specify Exercise routine involves: Weight training, Treadmill Number of times per week patient exercises: 5 Exercise session duration (minutes): 60 Blood Glucose (BG) Monitoring Monitoring Frequency: Per day - Specify Daily Monitoring - Specify: CGM Blood Glucose Summary/Pattern Patient Age when Insulin pump use started (years): 7 Insulin Pump Type: Tandem Tandem Model: t slim X2 CGM Summary Patient Uses Personal CGM: Yes - Specify CGM Other - Specify: Dexcom Summary of Findings - CGM Type: Personal Procedure date (Initial): 05/21/24 Procedure date (End): 7/18/24 CGM recording is adequate for interpretation: Yes Recording Time (%): 95 Total frequency of hypoglycemia: (Comment: 1-3 per week) Hypoglycemia pattern(s): Other - Specify, No specific pattern(s) Time spent in hypoglycemia (%): 1.7 (Comment: only 0.4% of time < 54 mg/dl) Hypoglycemia pattern - Specify: only one episode was nocturnal Hyperglycemic episodes: Sporadic post-prandial hyperglycemia Time spent in hyperglycemia (%): 39.7 (Comment: 9.7% > 250 mg/dl) Average glucose (+/-): 171 Time in range (70-180 mg/dL) (%): 59 Glucose Variability (%): 35 Glucose Management Indicator (%): 7.4 Summary page of the report will be included in the note/procedure note: Yes (Comment: Nursing note) Current issues with Glycemic Control Primary problem(s) patient has with glycemic control include(s): Fluctuations of glucose levels, Hypoglycemic episodes Frequency of Hypoglycemia: Weekly - Specify Hypoglycemia Weekly Pattern - Specify: 1-3, only one was nocturnal over the past month Hypoglycemia awareness: When hypoglycemic, patient develops symptoms Hypoglycemia symptoms: (Comment: Shaky, confused, weak) When hypoglycemic symptoms occurs, blood glucose levels - Specify: 60s mg/dl Dilated Retinal Exam Dilated Retinal Exam: Current - completed within last 12 months Dilated Retinal Exam month: March Dilated Retinal Exam year: 2023 Dilated Retinal Exam Findings: Outside provider. She reports no issue. Pertinent ROS Patient reports Neuropathic pain: No Patient reports Polyuria: No Patient reports Nocturia: No Patient reports Polydipsia: No Patient reports excess hunger: No Weight loss/gain: Not Applicable Frequency of forgetting or skipping diabetes medications (any reason): None. Current Medications 06/17/2024 DIABETES THERAPIES Medication Dosage Pharm Subclass insulin glargine (BASAGLAR KWIKPEN U-100 INSULIN) 100 unit/mL (3 mL) Inject 30 Units subcutaneously. Use in case of pump malfunctioning Insulin Analogs - Long Acting NOVOLOG U-100 INSULIN ASPART 100 unit/mL PER PUMP (MAX DAILY UNITS OF 80) Insulin Analogs - Rapid Acting OTHER Medication Dosage Pharm Subclass glucagon 3 mg/actuation nasal spray (BAQSIMI) Use 1 Warren in the nose as needed for low blood sugar. May repeat after 15 minutes using a new device if there is no response. Agents to treat Hypoglycemia (Hyperglycemics) LABS Hemoglobin A1C (POCT) (%) Date Value 06/17/2024 7.1 Labs from 2022 and prior are available on Care Everywhere. There is no recent lipid profile. It was normal in 2019. PAST MEDICAL HISTORY Diagnosis Date Type 1 diabetes (HCC) PAST SURGICAL HISTORY Procedure Laterality Date PAST SURGICAL HISTORY OF Tonsilectomy at age 9 years Social History Tobacco Use Smoking status: Never Smokeless tobacco: Never No family history on file. ALLERGIES No Known Allergies PHYSICAL EXAM: Vital Signs BP 122/79 Pulse 81 Resp 16 Ht 162.6 cm (5' 4 ) Wt 79.8 kg (175 lb 14.8 oz) LMP 06/12/2024 BMI 30.20 kg/m? Physical Exam Constitutional: Appearance: She is not ill-appearing or diaphoretic. Eyes: Conjunctiva/sclera: Conjunctivae normal. Neck: Thyroid: No (more content not included)...[facility]07-18-2024 History of Present illness Narrative* Odell Lyman MD - 06/17/2024 9:02 AM EDT Images from the original note were not included. [facility] Endocrinology Department Today's Visit Information Reason for Visit: Diabetes Visit Type: Initial Consult Type: Self-referral Consultation Chief Complaint: Other CC Other: 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 She has type 1 diabetes treated with insulin pump. She has Tandem T-Slim X2 with control IQ for the past 4 years. Diabetes History Patient age (years) when first diagnosed with Diabetes: 4 Diabetes Type: DM Type 1 Diabetes Related Complications: None known Related Comorbidities: Obesity Nutrition/Diet Summary Patient Current Diet: Counts carbs, Other - Specify Specify Diet: She keeps meal carbs to 20-30 grams per meal and 15 grams per snack, gluten-free Number of Meals per day: Three Number of Snacks per day/week: Per Day - Specify Number of snacks per day - Specify: 2, mid-afternoon and at bedtime. Exercise Summary Patient exercise routine: Exercising, Minimum times per week - Specify, Duration of session in minutes - Specify Exercise routine involves: Weight training, Treadmill Number of times per week patient exercises: 5 Exercise session duration (minutes): 60 Blood Glucose (BG) Monitoring Monitoring Frequency: Per day - Specify Daily Monitoring - Specify: CGM Blood Glucose Summary/Pattern Patient Age when Insulin pump use started (years): 7 Insulin Pump Type: Tandem Tandem Model: t slim X2 CGM Summary Patient Uses Personal CGM: Yes - Specify CGM Other - Specify: Dexcom Summary of Findings - CGM Type: Personal Procedure date (Initial): 05/21/24 Procedure date (End): 06/17/24 CGM recording is adequate for interpretation: Yes Recording Time (%): 95 Total frequency of hypoglycemia: (Comment: 1-3 per week) Hypoglycemia pattern(s): Other - Specify, No specific pattern(s) Time spent in hypoglycemia (%): 1.7 (Comment: only 0.4% of time < 54 mg/dl) Hypoglycemia pattern - Specify: only one episode was nocturnal Hyperglycemic episodes: Sporadic post-prandial hyperglycemia Time spent in hyperglycemia (%): 39.7 (Comment: 9.7% > 250 mg/dl) Average glucose (+/-): 171 Time in range (70-180 mg/dL) (%): 59 Glucose Variability (%): 35 Glucose Management Indicator (%): 7.4 Summary page of the report will be included in the note/procedure note: Yes (Comment: Nursing note) Current issues with Glycemic Control Primary problem(s) patient has with glycemic control include(s): Fluctuations of glucose levels, Hypoglycemic episodes Frequency of Hypoglycemia: Weekly - Specify Hypoglycemia Weekly Pattern - Specify: 1-3, only one was nocturnal over the past month Hypoglycemia awareness: When hypoglycemic, patient develops symptoms Hypoglycemia symptoms: (Comment: Shaky, confused, weak) When hypoglycemic symptoms occurs, blood glucose levels - Specify: 60s mg/dl Dilated Retinal Exam Dilated Retinal Exam: Current - completed within last 12 months Dilated Retinal Exam month: March Dilated Retinal Exam year: 2023 Dilated Retinal Exam Findings: Outside provider. She reports no issue. Pertinent ROS Patient reports Neuropathic pain: No Patient reports Polyuria: No Patient reports Nocturia: No Patient reports Polydipsia: No Patient reports excess hunger: No Weight loss/gain: Not Applicable Frequency of forgetting or skipping diabetes medications (any reason): None. Current Medications 06/17/2024 DIABETES THERAPIES Medication Dosage Pharm Subclass insulin glargine (BASAGLAR KWIKPEN U-100 INSULIN) 100 unit/mL (3 mL) Inject 30 Units subcutaneously. Use in case of pump malfunctioning Insulin Analogs - Long Acting NOVOLOG U-100 INSULIN ASPART 100 unit/mL PER PUMP (MAX DAILY UNITS OF 80) Insulin Analogs - Rapid Acting OTHER Medication Dosage Pharm Subclass glucagon 3 mg/actuation nasal spray (BAQSIMI) Use 1 Warren in the nose as needed for low blood sugar. May repeat after 15 minutes using a new device if there is no response. Agents to treat Hypoglycemia (Hyperglycemics) LABS Hemoglobin A1C (POCT) (%) Date Value 06/17/2024 7.1 Labs from 2022 and prior are available on Care Everywhere. There is no recent lipid profile. It was normal in 2019. PAST MEDICAL HISTORY Diagnosis Date Type 1 diabetes (HCC) PAST SURGICAL HISTORY Procedure Laterality Date PAST SURGICAL HISTORY OF Tonsilectomy at age 9 years Social History Tobacco Use Smoking status: Never Smokeless tobacco: Never No family history on file. ALLERGIES No Known Allergies PHYSICAL EXAM: Vital Signs BP 122/79 Pulse 81 Resp 16 Ht 162.6 cm (5' 4 ) Wt 79.8 kg (175 lb 14.8 oz) LMP 06/12/2024 BMI 30.20 kg/m Physical Exam Constitutional: Appearance: She is not ill-appearing or diaphoretic. Eyes: Conjunctiva/sclera: Conjunctivae normal. Neck: Thyroid: No thyromegaly or thyroid tenderness. Vascular: No carotid bruit. Cardiovascular: Rate and Rhythm: Normal rate and regular rhythm. Pulses: Dorsalis pedis pulses are 3+ on the right side and 3+ on the left side. Posterior tibial pulses are 3+ on the right side and 3+ on the left side. Heart sounds: No murmur heard. No gallop. Pulmonary: Effort: Pulmonary effort is normal. Breath sounds: Normal breath sounds. Abdominal: General: There is no distension. Palpations: Abdomen is soft. There is no mass. Musculoskeletal: Right lower leg: No edema. Left lower leg: No edema. Right foot: No deformity. Left foot: No deformity. Feet: Right foot: Skin integrity: Skin integrity normal. Toenail Condition: Right toenails are normal. Left foot: Skin integrity: Skin integrity normal. Toenail Condition: Left toenails are normal. Comments: Vibration sensation is normal in bilateral great toes. Lymphadenopathy: Cervical: No cervical adenopathy. Neurological: Mental Status: She is alert. DATA Diagnostic tests reviewed for today's visit: Most recent labs Impression and Plan Diabetes type (Diagnosis): DM Type 1 Adequacy of Glycemic Control: Adequate, With hypoglycemia With Hypoglycemia details: With nocturnal hypoglycemia, Reduced awareness of hypoglycemia Patient advised to contact the office if blood sugar readings are consistently high or if they are having frequent hypoglycemia: Yes Recommended Diet: Carb counting, Mediterranean, Gluten-free Recommended Glucose Monitoring: Other-Specify, Before meals and bedtime (AC and HS), As needed for hypoglycemia Glucose Monitoring - Specify: Continue with CGM Glucose Monitoring before driving: Recommended Diabetic Therapy Medication Changes: Three (3) changes made today - Specify Single DM Medication Change Today: Reduce manual basal rate to 1.3 unit per hour, all day Second DM Medication Change Today: increase prandial insulin, change carb to insulin ratio to 5.5 Third DM Medication Change Today: Basaglar dosage when off insulin pump should be reduced to 30 unit per day. Additional DM Medication Information: Use exercise mode during physical activities. Lipid Status: Other - Specify Lipid Status - Specify: Unknown. Obtain labs. LDL Goal: (Comment: TBD) Blood Pressure Status: Normal Weight Status: Obesity - Class I Complications: None known, Other - Specify Complications - Specify: Evaluate for nephropathy. Foot care was discussed today: Yes Related Comorbidities: Obesity Patient expressed understanding and agreed with plan. Patient to continue to follow up with her PCP and with other consultants regarding her other medical problems. Next visit in 3 months, with Endocrinology Nurse Practitioner and in 6 months with me . I spent a total of 57 minutes on the date of the service which included preparing to see the patient, [id number] patient care, completing clinical documentation, obtaining and/or reviewing separately obtained history, performing a medically appropriate examination, counseling and educating the pat ient/family/caregiver, and ordering medications, tests, or procedures. SIGNATURE Odell Lyman MD June 17, [address] [facility] Tele[facility] encounter Note * Telephone Encounter - Marian Rosa - 04/19/2024 11:22 AM EDT Left voicemail for patient to call [phone] to reschedule her NEW GDM appointment with Dr. Cardona. [facility]05-20-2024 Miscellaneous Notes* Telephone Encounter - Marian Rosa - 04/19/2024 11:22 AM EDT Left voicemail for patient to call [phone] to reschedule her NEW GDM appointment with Dr. Cardona. [facility] Telephone encounter Note * Telephone Encounter - Marian Rosa - 04/16/2024 3:08 PM EDT Left voicemail for patient to call [phone] to reschedule, patient is NEW GDM and needs to be scheduled sooner. [facility]05-17-2024 Miscellaneous Notes* Telephone Encounter - Marian Rosa - 04/16/2024 3:08 PM EDT Left voicemail for patient to call [phone] to reschedule, patient is NEW GDM and needs to be scheduled sooner. [facility]23 NotePatient Education Materials Name: Clinton Barba Current Date: 10/17/2023 13:46:11 [facility] 2000 The following sheet(s) are the Patient Education Leaflets for Clinton Barba Oncology Breast Health: Breast Self-Awareness What is breast self-awareness? Breast self-awareness is knowing how your breasts normally look and feel. Your breasts change as you go through different stages of your life. So it?s important to learn what is normal for your breasts. Knowing about your breasts helps you spot any changes in them right away. Tell your healthcare provider about any changes. Why is breast self-awareness important? Many experts now say that women should focus on breast self-awareness instead of doing a breast self-examination (BSE). These experts include the [place] [employer] and the [place] [employer]. Some experts even advise not teaching women to do a BSE. That?s because research hasn?t shown a clear benefit to doing BSEs. Breast self-awareness is different than a BSE. It isn?t about following a certain method and schedule. It?s about knowing what's normal for your breasts. That way you can spot even small changes right away. If you see any changes, tell your healthcare provider. Changes to look for Call your healthcare provider if you find any changes in your breasts that worry you. These changesmay be: ?A lump ?Nipple discharge other than breastmilk, especially if it's bloody ?Swelling ?A change in size or shape ?Skin changes, such as redness, thickening, or dimpling of the skin ?Swollen lymph nodes in the armpit ?Nipple problems, such as pain or redness If you find a lump Call your provider if you find lumpiness in one breast. Also call if you feel something different in the tissue or feel a definite lump. Sometimes lumpiness may be due to menstrual changes. But theremay be reason for concern. Your provider may want to see you right away if you have: ?Nipple discharge that is bloody ?Skin changes on your breast, such as dimpling or puckering It?s okay to be upset if you find a lump. Be sure to call your provider right away. Remember that most breast lumps are benign. This means they are not cancer. ? 6346-5045 [employer]. [address] [place] [address]. All rights reserved. This information is not intended as a substitute for professional medical care. Always follow your healthcare professional's instructions. Urology Kegel Exercises Kegel exercises don?t need special clothing or equipment. They?re easy to learn and simple to do. And if you do them right, no one can tell you?re doing them, so they can be done almost anywhere. Your healthcare provider, nurse, or physical therapist can answer any questions you have and help you get started. A weak pelvic floor The pelvic floor muscles may weaken due to aging, and vaginal childbirth, injury, surgery, chronic cough, or lack of exercise. If the pelvic floor is weak, your bladder and other pelvic organs may sag out of place. The urethra may also open too easily and allow urine to leak out. Kegel exercises can help you strengthen your pelvic floor muscles. Then they can better support the pelvic organs and control urine flow. How Kegel exercises are done Try each of the Kegel exercises described below. When you?re doing them, try not to move your leg, buttock, or stomach muscles: ?Contract as if you were stopping your urine stream. But do it when you?re not urinating. ?Tighten your rectum as if trying not to pass gas. Contract your anus, but don?t move your buttocks. ?You may place a finger or 2 in the vagina and squeeze your finger with your vagina to learn which muscles to tighten. Try to hold each Kegel for a slow count to 5. You probably won?t be able to hold them for that longat first. But keep practicing. It will get easier as your pelvic floor gets stronger. Eventually, special weights that you place in your vagina may be recommended to help make your Kegels even more effective. Visit your healthcare provider if you have difficulties doing Kegel exercises. Helpful hints Here are some tips to follow: ?Do your Kegels as often as you can. The more you do them, the faster you?ll feel the results. ?Pick an activity you do often as a reminder. For instance, do your Kegels every time you sit down. ?Tighten your pelvic floor before you sneeze, get up from a chair, cough, laugh, or lift. This protects your pelvic floor from injury and can help prevent urine leakage. ? [phone] [employer]. [address] [place] [address], [place] [address]. All rights reserved. This information is not intended as a substitute for professional medical care. Always follow your healthcare professional's instructions.[facility] No data available for this section [facility] Evaluation note* Diagnosis Type 1 diabetes mellitus with hypoglycaemia (HCC)- Primary Type 1 diabetes mellitus without complication (HCC) Type I (juvenile type) diabetes mellitus without mention of complication, not stated as uncontrolled Insulin pump status Insulin pump titration Fitting and adjustment of insulin pump [facility] this encounter [facility] Diagnosis Onset Date Resolution Status Anxiety acute Type 1 diabetes acute Wellness examination acute [facility] Work Phone: Evaluation note* Diagnosis Type 1 diabetes mellitus with hypoglycaemia (HCC)- Primary Pure hypercholesterolemia [facility] this encounter [facility] Diagnosis Onset Date Resolution Status Anxiety acute Type 1 diabetes acute Wellness examination acute Anxiety acute Tinea unguium acute [facility] Work Phone: Evaluation note* Diagnosis Type 1 diabetes mellitus without complication (CMS/HCC)- Primary Type I (juvenile type) diabetes mellitus without mention of complication, not stated as uncontrolled Well adult exam- Primary Routine general medical examination at a health care facility Type 1 diabetes mellitus without complication (CMS/HCC) Type I (juvenile type) diabetes mellitus without mention of complication, not stated as uncontrolled Type 1 diabetes mellitus without complication (CMS/HCC)- Primary Type I (juvenile type) diabetes mellitus without mention of complication, not stated as uncontrolled Onychomycosis Dermatophytosis of nail documented in this encounter [facility] HealthcareEvaluation note* Diagnosis Onychomycosis Dermatophytosis of nail documented in this encounter [facility] HealthcareEvaluation note* Diagnosis Type 1 diabetes mellitus without complication (CMS/HCC)- Primary Type I (juvenile type) diabetes mellitus without mention of complication, not stated as uncontrolled Well adult exam- Primary Routine general medical examination at a health care facility Type 1 diabetes mellitus without complication (CMS/HCC) Type I (juvenile type) diabetes mellitus without mention of complication, not stated as uncontrolled Type 1 diabetes mellitus without complication (CMS/HCC)- Primary Type I (juvenile type) diabetes mellitus without mention of complication, not stated as uncontrolled Type 1 diabetes mellitus without complication (CMS/HCC) Type I (juvenile type) diabetes mellitus without mention of complication, not stated as uncontrolled Encounter for gynecological examination without abnormal finding- Primary Screening for malignant neoplasm of cervix Screening for malignant neoplasm of the cervix Family planning Other general counseling and advice for contraceptive management documented in this encounter [facility] HealthcareEvaluation note* Diagnosis Type 1 diabetes mellitus without complication (CMS/HCC)- Primary Type I (juvenile type) diabetes mellitus without mention of complication, not stated as uncontrolled Well adult exam- Primary Routine general medical examination at a health care facility Type 1 diabetes mellitus without complication (CMS/HCC) Type I (juvenile type) diabetes mellitus without mention of complication, not stated as uncontrolled Type 1 diabetes mellitus without complication (CMS/HCC)- Primary Type I (juvenile type) diabetes mellitus without mention of complication, not stated as uncontrolled Type 1 diabetes mellitus without complication (CMS/HCC) Type I (juvenile type) diabetes mellitus without mention of complication, not stated as uncontrolled Encounter for gynecological examination without abnormal finding- Primary Screening for malignant neoplasm of cervix Screening for malignant neoplasm of the cervix Family planning Other general counseling and advice for contraceptive management Screening for thyroid disorder History of PCOS Type 1 diabetes mellitus without complication (CMS/HCC) Type I (juvenile type) diabetes mellitus without mention of complication, not stated as uncontrolled documented in this encounter [facility] HealthcareEvaluation noteNo assessment information availableLouis [facility] Work Phone: Hospital Discharge instructions No data available for this section [facility] Progress note No data available for this section [facility] Advance Directives Documents on File Type Date Recorded 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 ACP-Advance Directive 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-Power of Training Systems Officer Advance Directive Response Recorded Date/ Time Advance Directives No June 25 12:31pm Advance Directive Response Recorded Date/ Time Advance Directives No June 25 11:31am Summary Purpose Family History No Family History Records FoundNo Family History Records FoundNo Family History Records Found No data available for this section No Family History Records FoundNo Family History Records Found No data available for this section No data available for this section No Family History Records FoundNo Family History Records FoundNo Family History Records Found Chief Complaint and Reason for Visit Chief Complaint Establish/Wellness Reason for Visit Anxiety Type 1 diabetes Wellness examination Chief Complaint Establish/Wellness nail fungus on thumbs nails Reason for Visit Anxiety Type 1 diabetes Wellness examination Anxiety Tinea unguium Chief Complaint Admit Date 6 month f/u/URI January 24, 2025 2:53pm Chief Complaint Admit Date 6 month f/u/URI January 24, 2025 2:53pm chest congestion February 08, 2025 2:5 3pm Reason for Visit Admit Date Anxiety January 24, 2025 2:53pm Maxillary sinusitis January 24, 2025 2:53pm Reason for Referral Specialty Diagnoses / Procedures Referred By Alisa t Referred To Contact Diagnoses Type 1 diabetes mellitus with hypoglycaemia (HCC) Pure hypercholesterolemia Procedures ENDOCRINOLOGY DIETITIAN VISIT (MNT) MEDICAL NUTRITION ASSMT&IVNTJ INDIV EACH 15 VT MEDICAL NUTRITION ASSMT&IVNTJ INDIV EACH 15 VT MEDICAL NUTRITION ASSMT&IVNTJ INDIV EACH 15 [place] MEDICAL NUTRITION ASSMT&IVNTJ INDIV EACH 15 VT Odell Lyman MD [address] [place] [address] Referral ID Status Reason Start Date Expiration Date Visits Requested Visits Authorized [id number] Authorized PCP Requested Referral 07/04/2024 07/04/2025 1 1 Additional Source Comments INFORMATION SOURCE (unrecogn ized section and content) DATE CREATED AUTHOR 01/27/2023 [facility] DATE CREATED AUTHOR AUTHOR'S ORGANIZ ATION 11/28/2023 [facility] DATE CREATED AUTHOR AUTHOR'S ORGANIZ ATION 07/02/2024 [facility] DATE CREATED AUTHOR AUTHOR'S ORGANIZ ATION 12/04/2024 [facility] DATE CREATED AUTHOR AUTHOR'S ORGANIZ ATION 12/17/2024 [facility] DATE CREATED AUTHOR AUTHOR'S ORGANIZ ATION 01/09/2025 [facility] DATE CREATED AUTHOR AUTHOR'S ORGANIZ ATION 01/11/2025 [facility] DATE CREATED AUTHOR AUTHOR'S ORGANIZ ATION 01/17/2025 [facility] Source Comments (unrecognize d section and content) In the event this informatio n is protected by the Federal Confidentiality of Alcohol and Drug Abuse Patient Records regulations: The Federal rules restrict any use of the information to criminally investigate or prosecute any alcohol or drug abuse patient.[facility] the event this information is protected by the Federal Confidentiality of Alcohol and Drug Abuse Patient Records regulations: The Federal rules restrict any use of the information to criminally investigate or prosecute any alcohol or drug abuse patient.[facility] HospitalIn the event this information is protected by the Federal Confidentiality of Alcohol and Drug Abuse Patient Records regulations: The Federal rules restrict any use of the information to criminally investigate or prosecute any alcohol or drug abuse patient.[facility] HospitalIn the event this information is protected by the Federal Confidentiality of Alcohol and Drug Abuse Patient Records regulations: The Federal rules restrict any use of the information to criminally investigate or prosecute any alcohol or drug abuse patient.[facility] HospitalIn the event this information is protected by the Federal Confidentiality of Alcohol and Drug Abuse Patient Records regulations: The Federal rules restrict any use of the information to criminally investigate or prosecute any alcohol or drug abuse patient.[facility] HospitalIn the event this information is protected by the Federal Confidentiality of Alcohol and Drug Abuse Patient Records regulations: The Federal rules restrict any use of the information to criminally investigate or prosecute any alcohol or drug abuse patient.[facility] Reason for Visit (unrecogniz ed section and content) Reason Comments Diabetes Reason Comments Medication Problem Reason Comments Follow-up Specialty Diagnoses / Procedures Referred By Alisa britt Referred To Contact Dermatology Diagnoses nail fungus on thumbs nails Procedures office visit Lillie Irvin NP [address] [place] [address] Nora Archuleta MD [address] [facility] [address] [place] [address] Referral ID Status Reason Start Date Expiration Date Visits Re quested Visits Authorized [id number] Closed 08/19/2024 02/15/2025 1 1 Reason Comments Diabetes Reason Comments Gynecologic Exam Patient here for adriane murdock. Patient requesting a hormonal panel; cortisol and thyroid. Patient has periods every month lasting 4 days with normal bleeding and mild cramping. LMP 11/29/24 Has not been on birthcontrol in over a year. Would like to conceive this year. Currently sexually active. Declines STD testing. Care Teams (unrecognized sec tion and content) Team Status: Active Member Role Status Dates Lillie Irvin APRN NP-Pedro Primary Care Provider Active Team Status: Inactive Member Role Status Dates BRAIN Key Primary Care Provider, Attending Provider Active Start: June 28, 2024 End: June 28, 2024 Team Status: Inactive Member Role Status Dates Lillie Rohrbacher , BARIATRIC PROGRAM COORDINATOR TURN LASTER-C Primary Care Provider, Attending Provider Active Start: July 21, 2024 End: July 21, 2024 Vehicle Inspector Relationship Specialty Start Date End Date My Saenz, DO [address] [place] [address] PCP - [place] [employer] 12/01/23 Lillie Irvin NP [address] [place] [address] PCP - General Family Medicine 07/06/24 My Saenz, DO [address] [place] [address] PCP - Medical [place] [employer] 12/01/12 99 Vehicle Inspector Relationship Specialty Start Date End Date My Saenz, DO [address] [place] [address] PCP - [place] 12/01/23 Lillie Irvin NP [address] [place] [address] PCP - General Family Medicine 07/06/24 My Saenz, DO [address] [place] [address] PCP - Medical [place] [employer] 12/01/12 99 Vehicle Inspector Relationship Specialty Start Date End Date My Saenz, DO [address] [place] [address] PCP - [employer] 12/01/23 Lillie Irvin NP [address] [place] [address] PCP - General Family Medicine 07/06/24 Vehicle Inspector Relationship Specialty Start Date End Date My Saenz DO [address] [place] [address] PCP - [employer] 12/01/23 Herlinda Weldon PA [address] [place] [address] PCP - Medical [place] [employer] 12/01/12 99 Lillie Irvin NP [address] [place] [address] PCP - General Family Medicine 07/06/24 Vehicle Inspector Relationship Specialty Start Date End Date My Saenz DO [address] [place] [address] PCP - [employer] 12/01/23 Herlinda Weldon PA [address] [place] [address] PCP - Medical [place] [employer] 12/01/12 99 Lillie Irvin NP [address] [place], [place] [id number] PCP - General Family Medicine 07/06/24 Vehicle Inspector Relationship Specialty Start Date End Date My Saenz DO [address] [place] [address] PCP - [employer] 12/01/23 Lillie Irvin NP [address] [place] [address] PCP - General Family Medicine 07/06/24 Vehicle Inspector Relationship Specialty Start Date End Date My Saenz DO [address] [facility] [address] [place] [address] PCP - [employer] 12/01/23 Lillie Irvin NP [address] [place] [address] PCP - General Family Medicine 07/06/24 Vehicle Inspector Relationship Specialty Start Date End Date My Saenz DO [address] [facility] [address] [place] [address] PCP - [facility] 12/01/23 Lillie Irvin NP [address] [place] [address] PCP - General Family Medicine 07/06/24 Team Status: Inactive Member Role Status Dates Lillie Irvin APRN [employer]-C Primary Care Provider, Attending Provider Active Start: January 24, 2025 End: January 24, 2025 Team Status: Inactive Member Role Status Dates Lillie Irvin APRN [employer]-C Primary Care Provider, Attending Provider Active Start: February 08, 2025 End: February 08, 2025 Goals (unrecognized section and content) Goals may be documented in a n alternate sectionGoals may be documented in an alternate section No data available for this section No data available for this section No data available for this sectionGoals may be documented in an alternate sectionGoals may be documented in an alternate section FOR RECORDS PERTAINING TO PATIENTS WHO ARE OR HAVE BEEN ENROLLED IN A CHEMICAL DEPENDENCY/SUBSTANCEABUSE PROGRAM, SOME INFORMATION MAY BE OMITTED. This clinical summary was aggregated from multiple sources. Caution should be exercised in using it in the provision of clinical care. This summary normalizes information from multiple sources, and as a consequence, information in this document may materially change the coding, format and clinical context of patient data. In addition, data may be omitted in some cases. CLINICAL DECISIONS SHOULD BE BASED ON THE PRIMARY CLINICAL RECORDS. [employer] [facility]. provides no warranty or guarantee of the accuracy or completeness of information in this document.
== END 2025-02-11 09:13 | disposition home or self-care (01) ==
LOC: RAD 09:14
PROVIDERS: PCP Nurse Practitioner Family; Visit Provider Nurse Practitioner Family
DX: R05.9 Cough, unspecified (principal)
CPT/HCPCS: 71046